=== PATIENT | male | born 1955 | race Caucasian/White ===

== ENCOUNTER 2019-06-06 09:04 | Emergency (ER) | payer OTHER ==
--- OUTSIDE RECORDS SUMMARY | 2019-06-06 09:07 | XMS REPORT ---
:1955 Author Organization [facility] t Address [address] [place] [address] [address] [place] [address] Care Team Providers Name Role Phone MARCELINA Unavailable Unavailable Problems This patient has no known problems. Allergies, Adverse Reactions, Alerts This patient has no known allergies or adverse reactions. Medications This patient has no known medications. Results Test Description Test Time Test Comments Text Results Atomic Results Result Comments TISSUE EXAM 2017-11-30 16:37:00 Surgical Pathology Re port Case: [id number] Authorizing Provider: Jarrod Osborne MD Collected: [id number] Ordering Location: [facility] [facility] PERI[facility]IVE Received: 018 0918 SERVICE S Pathologist: López Jade MD Specimens: A) - Soft Tissu e, Other, RIGHT UO SCAR LESION B) - Soft Tiss ue, Other, BASE OF THE LESION A. URINARY BLADDER, RIGHT URETERAL ORIFICE, BIOPSY: - CYSTITIS CYSTICA ET GLANDULARIS - MUSCULARIS PROPRIA IS PRESEN TB. 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 There is also stromal edema. No dysplasia is seen on any of the sections.[id number] x 2Hematuria, cancer of renal pelvisA. Right UO scar lesion. B. Base of lesi on Specimen is received in two containers o f formalin both labeled with the patient's i nformation.Specimen A: Labeled "right UO scar le ashleigh" consists of multiple fragments of mercado-pi nk soft tissue measuring 2 x 1 x 0.3 cm in aggregate entirely submitted in A1.Specimen B: Labeled "base of the lesion" consists of multiple fragments of mercado-mccall soft tissue measuri ng 1.5 x 1.5 x 0.3 cm in aggregate entirely submit marlene in B1. CG/ew A-B. Performed.
--- OUTSIDE RECORDS SUMMARY | 2019-06-06 09:08 | XMS REPORT | Summary of Care ---
:1955 Author Organization [facility] Address [address] [id number] Care Team Providers Name Role Phone MD Hector Primary Care Provider Reason for Visit Reason Comments Back Pain Consult, Test & Treat (Routine) Status Reason Specialty Diagnoses / Referred By Referred To Procedures Contact Contact Authorization Not Consult, Physical Diagnoses Acute bilateral low back pain with left-sided sciatica Consult, Test, and Treat Consult, Test, and Treat Pako Marsh Kenneth Needed Test, and Medicine and Procedures ME OFFICE OUTPATIENT NEW 45 MINUTES Jamal Allison Jr., MD Treat Rehab [facility]IDE-[facility] [address] [place] [id number] Phone: Fax: Encounter Details Date Type Department Care Team Description 05/07/2019 Office Visit [facility] Renato Min Jr., Back Pain Physical Medicine & MD Rehabilitation [address] Floor, [place] [address] [place] [address] [phone] Allergies No Known Allergiesdocumented as of this encounter (statuses as of 05/07/2019) Medications Medication Sig Dispensed Refills Start Date End Date Status metoprolol (TOPROL-XL) 50 Take 50 mg by 0 10/15/2012 Active MG XL tablet mouth daily. pantoprazole (PROTONIX) 40 Take 40 mg by 0 3 Active MG tablet mouth daily. atorvastatin (LIPITOR) 10 Take 10 mg by 0 10/10/2012 Active MG tablet mouth daily. lisinopril (PRINIVIL, Take 40 mg by 0 Active ZESTRIL) 40 MG tablet mouth daily. FOLIC ACID Take 1 mg by 0 Active mouth daily. Cholecalciferol (VITAMIN Take 1,000 0 Active D) 1000 UNITS CAPS Units by mouth daily. amlodipine (NORVASC) 10 MG Take 10 mg by 0 Active tabletIndications: Hx of mouth daily. bladder cancer tadalafil (CIALIS) 5 MG Take 1 Tab by 30 Tab 11 09/15/2014 Active tablet mouth daily. ZOSTAVAX 19527 UNT/0.65ML 0 08/05/2016 Active SUSR Testosterone (TESTOPEL) 75 Inject into 0 Active MG pellets the muscle. Every 3-months Tamsulosin HCl 0.4 MG TAKE ONE 90 Cap 1 12/05/2018 Active CAPSIndications: Elevated CAPSULE BY prostate specific antigen MOUTH EVERY (PSA), Former smoker, DAY History of renal pelvis cancer, Encounter for follow-up surveillance of bladder cancer acetaminophen-codeine TAKE 1 TABLET 0 04/25/2019 Active (TYLENOL #3) 300-30 MG per BY MOUTH THREE tablet TIMES A DAY NEEDED FOR PAIN gabapentin (NEURONTIN) 600 TAKE 1 TABLET 0 0 Active MG tablet BY MOUTH TWICE A DAY ipratropium (ATROVENT) 0 03/14/2019 Active 0.06 % nasal spray methocarbamol (ROBAXIN) TAKE BY MOUTH 0 04/23/2019 Active 500 MG tablet 1 TABLET 2 TIMES A DAY PRN SPASMS predniSONE (DELTASONE) 20 0 03/14/2019 Active MG tablet methylPREDNISolone (MEDROL Take 1 Tab by 21 Tab 0 0 Active DOSEPACK) 4 MG tablet mouth See Admin Instructions. hydrocodone-acetaminophen Take 1 Tab by 30 Tab 0 05/07/2019 Active (NORCO) 5-325 mg tablet mouth every 6 hours as needed for Pain. documented as of this encounter (statuses as of 05/07/2019) Active Problems Problem Noted Date Elevated prostate specific antigen (PSA) 03/08/2016 Encounter for follow-up surveillance of bladder cancer 10/20/2015 History of renal pelvis cancer 03/02/2015 Former smoker 05/05/2014 Malaise and fatigue 04/22/2014 Neoplasm by body site 12/19/2013 Constipation 03/06/2013 Cancer of renal pelvis (HCCode) 01/02/2013 Hematuria 12/19/2012 documented as of this encounter (statuses as of 05/07/2019) Resolved Problems Problem Noted Date Resolved Date Diarrhea 03/06/2013 04/03/2013 documented as of this encounter (statuses as of 05/07/2019) Immunizations Name Administration Dates Next Due Influenza (whole) 11/20/2013 Influenza Quad-PF 01/03/2019 Influenza whole 01/09/2013 documented as of this encounter Social History Tobacco Use Types Packs/Day Years Used Date Former Smoker Cigarettes 1 30 Quit: 01/10/20 03 Smokeless Tobacco: Never Used Alcohol Use Drinks/Week oz/Week Comments Yes 40 Standard drinks or equivalent 40.0 Sex Assigned at Date Recorded Not on file Job Start Date Occupation Industry Not on file Not on file Not on file Travel History Travel Start Travel End No recent travel history available. documented as of this encounter Last Filed Vital Signs Vital Sign Reading Time Taken Comments Blood Pressure 134/87 05/07/2019 1:24 PM CDT Pulse 74 05/07/2019 1:24 PM CDT Temperature 36.6 C (97.8 F) 05/07/2019 1:24 PM CDT Respiratory Rate - - Oxygen Saturation - - Inhaled Oxygen Concentration - - Weight 94.3 kg (208 lb) 05/07/2019 1:24 PM CDT Height 182.9 cm (6') 05/07/2019 1:24 PM CDT Body Mass Index 28.21 05/07/2019 1:24 PM CDT documented in this encounter Patient Instructions Patient InstructionsRenato Min Jr., MD - 05/07/2019 2:15 PM CDT-Use of opiate medications for therapeutic purposes 1) Continue current medications. 2) Take medications as prescribed. 3) Do not share or sell your medications. Do not take medications not prescribed to you. 4) Call if you have any intolerable medication side effects. 5) Try and get daily exercise including walking. 6) Call if symptoms worsen. 7) If you feel out of control with the use of your medication or if you experience a change in behavior, you may be showing signs of addiction. Please contact our office if you have any worries or believe that you need help with addiction or substance abuse. 8) Lost or stolen prescriptions and/or medications will not be refilled early. 9) Cognitive Side effects of opiate medications include: Fatigue Dizziness Clouded mentation Decreased ability to concentrate Slowed motor performance Slowed reflexes Increased response time to stimuli Impaired coordination Use caution regarding these side effects and if any are present do not drive or operate heavy machinery. 10) The danger of mixing opiate medications with other sedating drugs like soma, benzodiazepines, sleep medications, alcohol and other opiates can lead to oversedation and accidental overdose. Do not mix medications. 11) Do not use any illegal substances. Constipation- Constipation is a common side effect of opiate medications. Opiates slow bowel motility. IF Constipation occurs, push fluids, use senna or senna with colace daily as directed. Maintain a high fiber diet with plenty of roughage, and 6-8 large glasses of water daily to avoid constipation inthe future. 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 Call if symptoms do not improve, please call our office documented in this encounter Progress Notes Renato Min Jr., MD - 05/07/2019 2:15 PM CDT Chief Complaint Patient presents with Back Pain Eagle Nolasco is a 63 y.o. male is here today for evaluation of low back pain. Symptoms have been present for many years ago Initial inciting event:lifting heavy object many years ago and 3 weeks ago after playing golf Pain Location:across the lower back left >right lately Pain severity: pain is perceived as moderate (4-6 pain scale) Exacerbating factors: Bending with am stiffness Associated symptoms/Red flags: no other symptoms: The patient denies F/C or unexplained weightloss.They have no bowel or bladder complaints. Previous workup: MRI (images reviewed) 05-06-2019 no report. 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 atorvastatin Take 10 mg by mouth daily. Vitamin D Take 1,000 Units by mouth daily. FOLIC ACID Take 1 mg by mouth daily. gabapentin TAKE 1 TABLET BY MOUTH TWICE A DAY ipratropium lisinopril Take 40 mg by mouth daily. methocarbamol TAKE BY MOUTH 1 TABLET 2 TIMES A DAY PRN SPASMS metoprolol Take 50 mg by mouth daily. pantoprazole Take 40 mg by mouth daily. predniSONE tadalafil Take 1 Tab by mouth daily. 30 Tab 11 Tamsulosin HCl TAKE ONE CAPSULE BY MOUTH EVERY DAY 90 Cap 1 Testosterone Inject into the muscle. Every 3-months Zostavax No facility-administered medications prior to visit. Social History Tobacco Use Smoking status: Former Smoker Packs/day: 1.00 Years: 30.00 Pack years: 30.00 Types: Cigarettes Last attempt to quit: 01/09/2003 Years since quittin.3 Smokeless tobacco: Never Used Substance Use Topics Alcohol use: Yes Alcohol/week: 40.0 standard drinks Types: 40 drink(s) per week Drug use: No Past Medical, Family, Social and Medication history was reviewed. The patient's pain diagram and questionnaire were reviewed. Review of Systems Constitutional: Negative for chills, fever and malaise/fatigue. Respiratory: Negative for shortness of breath. Cardiovascular: Negative for chest pain. Gastrointestinal: Negative for constipation. Genitourinary: Negative for urgency. Musculoskeletal: Positive for back pain and myalgias. Neurological: Negative for sensory change, focal weakness and weakness. Psychiatric/Behavioral: Negative for depression. The patient is not nervous/anxious and does not have insomnia. Physical Exam Blood pressure 134/87, pulse 74, temperature 97.8 F (36.6 C), temperature source Oral, height 6'(1.829 m), weight 208 lb (94.3 kg). General appearance: alert, well appearing, and in no distress. HEENT: normocephalic, atraumatic. Chest: no tachypnea, retractions or cyanosis. CVS exam: intact peripheral pulses lower extremities. Lower extremity edema: absent Abdominal exam: soft, nondistended. Skin exam - no rashes Neurological exam reveals alert, oriented, normal speech, no focal findings or movement disorder noted, DTR's normal and symmetric, motor and sensory grossly normal bilaterally. Lumbar spine exam: Gait: antalgic Tenderness: central, left paralumbar ROM:limited extension JUSTICE: Negative bilateral SLR: Negative bilateral Femoral neural tension testing: Negative bilateral After reviewing pertinent patient history and PE findings and correlating with available imaging studies and past treatments my assessment and plan is as follows: 1. Lumbar disc herniation with radiculopathy The pathophysiology of the current diagnosis was discussed with the patient. Other possible causes were reviewed. Multiple treatment options were discussed. All of the patient's questions were answered. Medrol trial and if not improving consider PT vs EDER MRI images of the spine were reviewed with the patient. 2. Muscle pain, myofascial The pathophysiology of myofascial pain was discussed with the patient. 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 Therisks and benefits of trigger point, intra-articular steroid injections and spinal injections were di scussed. Verbal instructions on spinal biomechanics and lifting techniques were given. Benefits ofregular exercise and activity were also reviewed with him. -Use of opiate medications for therapeutic purposes 1) [place] 5mg prn (30). 2) Take medications as prescribed. 3) Do not share or sell your medications. Do not take medications not prescribed to you. 4) Call if you have any intolerable medication side effects. 5) Try and get daily exercise including walking. 6) Call if symptoms worsen. 7) If you feel out of control with the use of your medication or if you experience a change in behavior, you may be showing signs of addiction. Please contact our office if you have any worries or believe that you need help with addiction or substance abuse. 8) Lost or stolen prescriptions and/or medications will not be refilled early. 9) Cognitive Side effects of opiate medications include: Fatigue Dizziness Clouded mentation Decreased ability to concentrate Slowed motor performance Slowed reflexes Increased response time to stimuli Impaired coordination Use caution regarding these side effects and if any are present do not drive or operate heavy machinery. 10) The danger of mixing opiate medications with other sedating drugs like soma, benzodiazepines, sleep medications, alcohol and other opiates can lead to oversedation and accidental overdose. Do not mix medications. 11) Do not use any illegal substances. Constipation- Constipation is a common side effect of opiate medications. Opiates slow bowel motility. IF Constipation occurs, push fluids, use senna or senna with colace daily as directed. Maintain a high fiber diet with plenty of roughage, and 6-8 large glasses of water daily to avoid constipation inthe future. Timing elimination to occur after meals, or after a hot drink, can also improve the situation retirement. Call if symptoms do not improve, please call our office Renato Min Jr., MD documented in this encounter Plan of Treatment Date Type Specialty Care Team Description 05/09/2019 Procedure visit Urology Francisco Garnett PA [address] [place], [place] [address] 06/12/2019 Office Visit [facility] Jarrod Osborne MD [address] [facility] [address] [place], [place] [address] [phone] Health Maintenance Due Date Last Done Comments COLON CANCER SCREENIN1955 COLONOSCOPY TETANUS SHOT (ADULT) 1968 BMI FOLLOW UP PLAN 12/27/1971 HEPATITIS C SCREENING 12/27/1971 MEDICARE AWV (Initial) 08/21/2015 AAA Screen 2018 PNEUMOVAX >=65 (PPSV23) 2018 PREVNAR >= 65 (PCV13) 2018 FALL SCREEN 05/06/2020 05/07/2019 FLU VACCINE > 6 MONTHS Completed 01/03/2019, 11/08/2017 (Declined), 12/14/2016 (Declined), Additional history exists documented as of this encounter Results Not on filedocumented in this encounter Visit Diagnoses Diagnosis Lumbar disc herniation with radiculopath y - Primary Displacement of lumbar intervertebral di sc without myelopathy Muscle pain, myofascial Mylagia and myositis, unspecified documented in this encounter Insurance Payer Benefit Plan / Subscriber ID Effective Dates Phone Addre ss Type Group MEDICARE MEDICARE PART A xxxxxxxxxxx 2015-Present [address] Medicare [place] [address] [employer] INDEMNITY/TRADIT xxxxxx 2015-Presen [address] Indemnity [employer]ON[employer] CHOICE - [place] [employer] [id number] documented as of this encounter
--- NOTE | 2019-06-06 09:46 | EDPHYS ---
Physician Documentation [facility] Name: Eagle Nolasco Age: 63 yrs Sex: Male : 1955 Arrival Date: 06/06/2019 Time: 09:10 Bed 15 Private MD: Dodie Davis H ED Physician Param Guzman HPI: 06/05 09:36 This 63 yrs old Male presents to ER via Ambulatory with complaints of Wrist ps1 Pain. 09:36 Patient states that he has been lifting stuff in garage over last three days and now ps1 has right wrist pain localizing over anatomic snuff box. No trauma. Pain rated as moderate and severe with moment of thumb. No fever. Mild swelling. . Historical: - Allergies: 09:30 No Known Allergies; ss - Home Meds: 09:30 amlodipine 10 mg tab 1 tab once daily [Active]; atorvastatin 10 mg Oral tab 1 tab once ss daily [Active]; lisinopril 40 mg Oral tab 1 tab once daily [Active]; pantoprazole 40 mg Oral TbEC 1 tab once daily [Active]; metoprolol tartrate 100 mg Oral tab [Active]; - PMHx: 09:30 Hyperlipidemia; Hypertension; GERD; ss - PSHx: 09:30 Right kidney removal; ss - Immunization history:: Adult Immunizations up to date, Adult Immunizations unknown. - Social history:: Smoking status: Patient denies any tobacco usage or history of. Smoking status: . ROS: 09:36 Constitutional: Negative for fever, chills, and weight loss, Eyes: Negative for injury, ps1 pain, redness, and discharge, ENT: Negative for injury, pain, and discharge, Cardiovascular: Negative for chest pain, palpitations, and edema, Respiratory: Negative for shortness of breath, cough, wheezing, and pleuritic chest pain, Abdomen/GI: Negative for abdominal pain, nausea, vomiting, diarrhea, and constipation. 09:36 MS/extremity: Positive for tenderness, of the right wrist. Exam: 09:36 Constitutional: This is a well developed, well nourished patient who is awake, alert, ps1 and in no acute distress. Head/Face: Normocephalic, atraumatic. Eyes: Pupils equal round and reactive to light, extra-ocular motions intact. Lids and lashes normal. Conjunctiva and sclera are non-icteric and not injected. 09:36 Chest/axilla: Inspection: normal. 09:36 Cardiovascular: Rate: normal, Rhythm: regular. 09:36 Respiratory: Respirations: normal. 09:36 Abdomen/GI: Inspection: abdomen appears normal. 09:36 Musculoskeletal/extremity: Extremities: grossly normal except: noted in the right wrist: pain, tenderness, in anatomic snuff box cw dequervains tenosynovitis. . 09:36 Skin: Appearance: normal except for affected area. Vital Signs: 09:20 BP 148 / 89; Pulse 82; Resp 16; Temp 98.5(O); Pulse Ox 98% on R/A; dh3 MDM: 09:36 Data reviewed: vital signs, nurses notes, radiologic studies, and as a result, I will ps1 discharge patient. ED course: Splint with thumb spica and refer to ortho. Joan Short term NSAIDS and steroids . 09:45 Patient medically screened. ps1 06/05 09:14 Order name: Wrist Right 2 View XRAY ps1 Administered Medications: No medications were administered Disposition: 06/06/19 09:45 Discharged to Home. Impression: Other synovitis and tenosynovitis. - Condition is Stable. - Discharge Instructions: De Quervain Tenosynovitis. - Prescriptions for Anaprox DS 550 mg Oral Tablet - take 1 tablet by ORAL route every 12 hours As needed; 20 tablet. Medrol (Fuad) 4 mg Oral Tablets, Dose Pack - take 1 tablet by ORAL route as directed - follow package instructions; 1 packet. - Medication Reconciliation Form, Thank You Letter, Antibiotic Education, Prescription Opioid Use form. - Follow up: Se Reza MD; When: Upon discharge from the Emergency Department; Reason: Further diagnostic work-up, Recheck today's complaints, Continuance of care, Re-evaluation by your physician. Follow up: Emergency Department; When: As needed; Reason: Fever > 102 F, Trouble breathing, Worsening of condition. - Problem is new. - Symptoms are unchanged. Signatures: Dispatcher [employer] EDMS Teresa Soto RN RN ss Hall, Patricia, RN RN ph Singer, Phillip, MD MD ps1 Corrections: (The following items were deleted from the chart) 10:06 09:45 06/06/2019 09:45 Discharged to Home. Impression: Other synovitis and ph tenosynovitis. Condition is Stable. Forms are Medication Reconciliation Form, Thank You Letter, Antibiotic Education, Prescription Opioid Use. Follow up: Se Reza; When: Upon discharge from the Emergency Department; Reason: Further diagnostic work-up, Recheck today's complaints, Continuance of care, Re-evaluation by your physician. Follow up: Emergency Department; When: As needed; Reason: Fever > 102 F, Trouble breathing, Worsening of condition. Problem is new. Symptoms are unchanged. ps1
--- NOTE | 2019-06-06 09:46 | ER ---
Nurse's Notes [facility] Name: Eagle Nolasco Age: 63 yrs Sex: Male : 1955 Arrival Date: 06/06/2019 Time: 09:10 Bed 15 Private MD: Dodie Davis H Diagnosis: Other synovitis and tenosynovitis Presentation: 06/05 09:20 Chief complaint: Patient states: R wrist pain and swelling x 2 days. No known injury. ss 09:21 Coronavirus screen: Patient denies a cough. Patient denies shortness of breath or ph difficulty breathing. Patient denies measured and/or subjective temperature greater than 100.4F prior to today's visit. Patient denies travel on a cruise ship or to a country the [facility] currently lists as an affected area. Patient denies contact with known and/or suspected case of COVID-19. Ebola Screen: No symptoms or risks identified at this time. Initial Sepsis Screen: Does the patient meet any 2 criteria? No. Patient's initial sepsis screen is negative. Does the patient have a suspected source of infection? No. Patient's initial sepsis screen is negative. Risk Assessment: Do you want to hurt yourself or someone else? Patient reports no desire to harm self or others. Onset of symptoms was June 06, 2019. 09:21 Acuity: EDER 4 ph 09:21 Method Of Arrival: Ambulatory ph Historical: - Allergies: 09:30 No Known Allergies; ss - Home Meds: 09:30 amlodipine 10 mg tab 1 tab once daily [Active]; atorvastatin 10 mg Oral tab 1 tab once ss daily [Active]; lisinopril 40 mg Oral tab 1 tab once daily [Active]; pantoprazole 40 mg Oral TbEC 1 tab once daily [Active]; metoprolol tartrate 100 mg Oral tab [Active]; - PMHx: 09:30 Hyperlipidemia; Hypertension; GERD; ss - PSHx: 09:30 Right kidney removal; ss - Immunization history:: Adult Immunizations up to date, Adult Immunizations unknown. - Social history:: Smoking status: Patient denies any tobacco usage or history of. Smoking status: . Screenin:21 Abuse screen: Denies threats or abuse. Denies injuries from another. Nutritional ph screening: No deficits noted. Tuberculosis screening: No symptoms or risk factors identified. Fall Risk None identified. Assessment: 10:01 General: Appears in no apparent distress. comfortable, well groomed, Behavior is calm, ph cooperative, appropriate for age, Denies fever, feeling ill. Pain: Complains of pain in lateral aspect of right hand and dorsal aspect of proximal phalanx of right thumb. Neuro: Level of Consciousness is awake, alert, obeys commands, Oriented to person, place, time, situation. Cardiovascular: Capillary refill < 3 seconds in bilateral fingers Patient's skin is warm and dry. Respiratory: Airway is patent Respiratory effort is even, unlabored, Respiratory pattern is regular, symmetrical. Derm: Skin is intact, is healthy with good turgor, Skin is pink, warm \T\ dry. Musculoskeletal: Circulation, motion, and sensation intact. Range of motion: intact in all extremities. Vital Signs: 09:20 BP 148 / 89; Pulse 82; Resp 16; Temp 98.5(O); Pulse Ox 98% on R/A; dh3 ED Course: 09:10 Patient arrived in ED. dp 09:10 Anna Young MD is Private Physician. dp 09:10 Dodie Davis DO is Private Physician. dp 09:10 Param Guzman MD is Attending Physician. ps1 09:21 Elicia Harris, DULCE is Primary Nurse. ph 09:22 Triage completed. ph 09:22 Arm band placed on Patient placed in an exam room. ph 09:22 Patient has correct armband on for positive identification. Bed in low position. Call ph light in reach. Side rails up X 1. Door closed. Noise minimized. Warm blanket given. 09:43 Se Reza MD is Referral Physician. ps1 09:49 Wrist Right 2 View XRAY In Process Unspecified. EDMS 10:05 No provider procedures requiring assistance completed. Patient did not have IV access ph during this emergency room visit. 10:06 Velcro wrist splint applied to right wrist. ph Administered Medications: No medications were administered Outcome: 09:45 Discharge ordered by . ps1 10:05 Discharged to home ambulatory. ph 10:05 Condition: good 10:05 Discharge instructions given to patient, Instructed on discharge instructions, follow up and referral plans. medication usage, Demonstrated understanding of instructions, follow-up care, medications, Prescriptions given X 2. 10:06 Patient left the ED. ph Signatures: Dispatcher [employer] EDTeresa Hansen RN RN Elicia Harris RN RN Waq[facility], [facility] Param Guzman MD MD ps1 Pena, Darian dp
[2019-06-06 10:11] VITALS: BP 148/89; TEMP 98.5; O2SAT 98
--- NOTE | 2019-06-06 11:20 | RAD REPORT ---
EXAM DESCRIPTION: RAD - Wrist Right 2 View - 06/06/2019 9:48 am CLINICAL HISTORY: PAIN Pain COMPARISON: No comparisons FINDINGS: No fracture or dislocation seen. Mild soft tissue swelling is seen along the dorsum of th e wrist.
== END 2019-06-06 10:06 | disposition home or self-care (01) ==
LOC: ER 09:04
DX: M65.80 Other synovitis and tenosynovitis, unspecified site (principal); I10 Essential (primary) hypertension; E78.5 Hyperlipidemia, unspecified; K21.9 Gastro-esophageal reflux disease without esophagitis
CPT/HCPCS: 99283

== ENCOUNTER 2019-07-17 04:40 | Emergency (ER) | payer OTHER ==
[2019-07-17] MEDS ORDERED: HYDROCODONE/APAP 10/325 TAB ONE (05:26)
[2019-07-17] MEDS ORDERED: DIAZEPAM 10 MG/2 ML INJ SYRINGE ONE (05:27)
--- OUTSIDE RECORDS SUMMARY | 2019-07-17 07:06 | XMS REPORT | Clinical Summary ---
:1955 Author Organization [facility] Address [address] [place] [address] Care Team Providers Name Role Phone Rebecca Young Primary Care Provider Unavailable Allergies Active Allergy Reactions Severity Noted Date Comments Vancomycin Analogues Itching 01/02/2014 Red Man Syndrome Medications Medication Sig Dispensed Refills Start Date End Date Status pantoprazole Take 40 mg by 0 Act emmy (PROTONIX) 40 MG mouth daily. tablet ATORVASTATIN CALCIUM Take 10 mg by 0 Active (LIPITOR ORAL) mouth. AMLODIPINE BESYLATE Take 10 mg by 0 Active (NORVASC ORAL) mouth daily. LISINOPRIL ORAL Take 40 mg by 0 Active mouth daily. CHOLECALCIFEROL, Take by mouth 0 Active VITAMIN D3, (VITAMIN daily. D3 ORAL) FOLIC ACID ORAL Take 1 mg by 0 A ctive mouth daily. aspirin 81 mg Tab Take by mouth 0 Active daily. tamsulosin (FLOMAX) Take 1 capsule 30 capsule 0 11/28/2017 Active 0.4 mg Cap 24 hr (0.4 mg total) by capsule mouth daily. 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 Last Filed Vital Signs Not on file Plan of Treatment Not on file Implants Implanted Type Area Self Pay Collector Device Shelf Model / Identifier Expiration Serial / Date Lot Stent,Uret Polaris Loop Dual Durometer Percuflex 6fr 28cm - [id number] Uro Stent Right: [place] 06/20/2015 155-234 / Implanted: Qty: 1 on 12/25/2012 by Stan Gee MD [facility] / [id number] Results Not on fileafter 07/16/2018 Insurance Payer Benefit Plan / Group Subscriber ID Type Phone A ddress MEDICARE MEDICARE A B xxxxxxxxxxx Medicare AETNA - [place] CARE AETNA INDEMNITY NON CONTR xxxxxxxxx Comm AETNA - [place]GD CARE AETNA HMO POS QPOS xxxxxxxxx HMO/POS Advance Directives For more information, please contact:[address] [phone] Code Status Date Activated Date Inactivated Comments Code ONE 06/24/2013 7:15 PM 06/27/2013 4:13 PM All possible means of support, including: cardi ac massage, mechanical venti lation, and defibrillation w ill be used to support life. Code ONE 12/25/2012 6:14 PM 2012 3:01 PM All possib le means of support, including: cardi ac massage, mechanical ventilation, and defibrillation will be used to suppo rt life.
--- OUTSIDE RECORDS SUMMARY | 2019-07-17 07:06 | XMS REPORT ---
:1955 Author Organization [facility] t Address [address] [place] [address] Care Team Providers Name Role Phone Jamal Min MD Attending Clinician Salma MECHANICAL DEVELOPMENT ENGINEER-CCarley Attending Clinician MARCELINA Attending Clinician Unavailable MARCELINA Admitting Clinician Unavailable Problems This patient has no known problems. Allergies, Adverse Reactions, Alerts This patient has no known allergies or adverse reactions. Medications This patient has no known medications. Procedures This patient has no known procedures. Encounters Start End Encounter Admission Attending Care Care Encounter Source Date/Time Date/Time Type Type Clinicians Facility Department ID 2019-05-07 2019-05-07 Office [facility] Min [id number] 13:20:03 13:50:03 Visit Renato Berry AMBULATOR [id number] Y [id number] 2019-04-30 2019-04-30 Office [facility] Marsh [id number] 09:28:36 09:58:19 Visit Nancy Howe AMBULATOR [id number] Y [id number] Results Test Description Test Time Test Comments Results Result Comments Source TISSUE EXAM 2017-11-30 Surgical Pathology 16:37:00 Report Case: [id number] Authorizing Provider: Jarrod Osborne MD Collected: 11/28/2017 1600 Ordering Location: [facility] Received: 11/29/2017 0823 SERVICES Pathologist: López Cherry MD Specimens: A) - Soft Tissue, Other, RIGHT UO SCAR LESION B) - Soft Tissue, Other, BASE OF THE LESION A. URINARY BLADDER, RIGHT URETERAL ORIFICE, BIOPSY: - CYSTITIS CYSTICA ET GLANDULARIS - MUSCULARIS PROPRIA IS PRESENTB. 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 There is also stromal edema. No dysplasia is seen on any of the sections.[id number] x 2Hematuria, cancer of renal pelvisA. Right UO scar lesion. B. Base of lesion Specimen is received in two containers of formalin both labeled with the patient's information.Specimen A: Labeled "right UO scar lesion" consists of multiple fragments of mercado-pink soft tissue measuring 2 x 1 x 0.3 cm in aggregate entirely submitted in A1.Specimen B: Labeled "base of the lesion" consists of multiple fragments of mercado-mccall soft tissue measuring 1.5 x 1.5 x 0.3 cm in aggregate entirely submitted in B1. CG/ew A-B. Performed.
[2019-07-17 13:52] VITALS: BP 174/98; TEMP 98.3; O2SAT 98
--- NOTE | 2019-07-22 14:16 | ER ---
Nurse's Notes [facility] Name: Eagle Nolasco Age: 63 yrs Sex: Male : 1955 Arrival Date: 07/17/2019 Time: 04:43 Bed 7 Private MD: Diagnosis: Low back pain Presentation: 07/16 04:53 Chief complaint: Patient states: Reports he has had lower back pain for the past four ea months, was seeing Dr. Banegas display specialist at [facility]. Pt reports he has been out of Hydrocodone for the past 5 days and has been unable to get it filled. Coronavirus screen: Proceed with normal triage. Ebola Screen: No symptoms or risks identified at this time. Initial Sepsis Screen: Does the patient meet any 2 criteria? No. Patient's initial sepsis screen is negative. Does the patient have a suspected source of infection? No. Patient's initial sepsis screen is negative. Risk Assessment: Do you want to hurt yourself or someone else? Patient reports no desire to harm self or others. Onset of symptoms was July 17, 2019. 04:53 Method Of Arrival: Ambulatory ea 04:53 Acuity: EDER 4 ea Historical: - Allergies: 05:00 No Known Allergies; ea - Home Meds: 05:00 aspirin 81 mg Oral chew [Active]; Vitamin D Oral [Active]; folic acid 800 mcg Oral tab ea 1 tab once daily [Active]; amlodipine 10 mg tab 1 tab once daily [Active]; atorvastatin 10 mg oral tab 1 tab once daily [Active]; lisinopril 40 mg Oral tab 1 tab once daily [Active]; metoprolol tartrate 100 mg Oral tab 1 tab once daily [Active]; tamsulosin 0.4 mg oral cp24 1 cap once daily [Active]; tadalafil oral oral [Active]; - PMHx: 05:00 chronic back pain; ea - PSHx: 05:00 Right kidney removal; ea - Immunization history:: Adult Immunizations up to date. - Social history:: Patient/guardian denies using alcohol, street drugs, The patient lives with family, Smoking status: unknown. - Family history:: not pertinent. Screenin:55 Abuse screen: Denies threats or abuse. Nutritional screening: No deficits noted. ea Tuberculosis screening: No symptoms or risk factors identified. Fall Risk None identified. Assessment: 05:00 General: Appears uncomfortable, Behavior is appropriate for age. Pain: Complains of ea pain in back. Neuro: Level of Consciousness is awake, alert, obeys commands, Oriented to person, place, time. Respiratory: Airway is patent Respiratory effort is even, unlabored, Respiratory pattern is regular, symmetrical. Derm: Skin is pink, warm \T\ dry. Musculoskeletal: Parent/caregiver report the patient having pain in back. Vital Signs: 04:53 BP 174 / 98; Pulse 98; Resp 18; Temp 98.3; Pulse Ox 98% on R/A; Weight 95.25 kg; Height ea 6 ft. (182.88 cm); 04:53 Body Mass Index 28.48 (95.25 kg, 182.88 cm) ea ED Course: 04:43 Patient arrived in ED. 04:52 Pricila Romero, RN is Primary Nurse. ea 04:55 Triage completed. ea 04:56 Arm band placed on right wrist. Patient placed in an exam room, on a stretcher, on ea pulse oximetry. 04:56 Patient has correct armband on for positive identification. Bed in low position. Call ea light in reach. Side rails up X2. 05:14 Roseline Church MD is Attending Physician. ma2 05:28 No provider procedures requiring assistance completed. Patient did not have IV access rv during this emergency room visit. Administered Medications: 05:28 Drug: Valium 5 mg Route: IM; Site: right deltoid; rv 05:44 Follow up: Response: No adverse reaction ea 05:28 Drug: Valium 5 mg Route: IM; Site: right deltoid; rv 05:44 Follow up: Response: No adverse reaction ea 05:28 Drug: Cotuit 10 mg-325 mg 1 tabs {Note: RASS 0.} Route: PO; rv 05:44 Follow up: Response: No adverse reaction; RASS: Alert and Calm (0) ea Outcome: 05:18 Discharge ordered by . ma2 05:29 Discharge instructions given to patient, Instructed on discharge instructions, follow rv up and referral plans. medication usage, Demonstrated understanding of instructions, follow-up care, medications, Prescriptions given X 2. 05:44 Patient left the ED. ea Signatures: René Alaniz RN RN Pricila Romero RN Roseline Reese ea, MD MD ma2 Archie Watkins, DULCE RN rv
--- NOTE | 2019-07-22 14:16 | EDPHYS ---
Physician Documentation [facility] Name: Eagle Nolasco Age: 63 yrs Sex: Male : 1955 Arrival Date: 07/17/2019 Time: 04:43 Bed 7 Private MD: ED Physician Roseline Church HPI: 07/16 05:15 This 63 yrs old Male presents to ER via Ambulatory with complaints of Low Back Pain. ma2 05:15 The patient presents with pain that is chronic. The symptoms are located in the low ma2 back. Onset: The symptoms/episode began/occurred gradually, 3 week(s) ago. Associated signs and symptoms: Pertinent negatives: constipation, headache, hematuria, nausea, numbness, vomiting, weakness. Severity of symptoms: At their worst the symptoms were moderate, in the emergency department the symptoms are unchanged. The patient has experienced similar episodes in the past. chronic back p[ain he is out of his norco. no red flags no weakness fever urine retention or incontinence . no saddle anasthesia . Historical: - Allergies: 05:00 No Known Allergies; ea - Home Meds: 05:00 aspirin 81 mg Oral chew [Active]; Vitamin D Oral [Active]; folic acid 800 mcg Oral tab ea 1 tab once daily [Active]; amlodipine 10 mg tab 1 tab once daily [Active]; atorvastatin 10 mg oral tab 1 tab once daily [Active]; lisinopril 40 mg Oral tab 1 tab once daily [Active]; metoprolol tartrate 100 mg Oral tab 1 tab once daily [Active]; tamsulosin 0.4 mg oral cp24 1 cap once daily [Active]; tadalafil oral oral [Active]; - PMHx: 05:00 chronic back pain; ea - PSHx: 05:00 Right kidney removal; ea - Immunization history:: Adult Immunizations up to date. - Social history:: Patient/guardian denies using alcohol, street drugs, The patient lives with family, Smoking status: unknown. - Family history:: not pertinent. ROS: 05:15 Constitutional: Negative for fever, chills, and weight loss. ma2 05:15 All other systems are negative. Exam: 05:15 Constitutional: This is a well developed, well nourished patient who is awake, alert, ma2 and in no acute distress. Chest/axilla: Normal chest wall appearance and motion. Nontender with no deformity. No lesions are appreciated. Cardiovascular: Regular rate and rhythm with a normal S1 and S2. No gallops, murmurs, or rubs. Normal PMI, no JVD. No pulse deficits. Respiratory: Lungs have equal breath sounds bilaterally, clear to auscultation and percussion. No rales, rhonchi or wheezes noted. No increased work of breathing, no retractions or nasal flaring. Abdomen/GI: Soft, non-tender, with normal bowel sounds. No distension or tympany. No guarding or rebound. No evidence of tenderness throughout. Back: No spinal tenderness. No costovertebral tenderness. Full range of motion. Skin: Warm, dry with normal turgor. Normal color with no rashes, no lesions, and no evidence of cellulitis. MS/ Extremity: Pulses equal, no cyanosis. Neurovascular intact. Full, normal range of motion. Neuro: Awake and alert, GCS 15, oriented to person, place, time, and situation. Cranial nerves II-XII grossly intact. Motor strength 5/5 in all extremities. Sensory grossly intact. Cerebellar exam normal. Normal gait. Vital Signs: 04:53 BP 174 / 98; Pulse 98; Resp 18; Temp 98.3; Pulse Ox 98% on R/A; Weight 95.25 kg; Height ea 6 ft. (182.88 cm); 04:53 Body Mass Index 28.48 (95.25 kg, 182.88 cm) ea MDM: 05:14 Patient medically screened. [facility] 05:15 Differential diagnosis: strain, sciatica, contusion, Herniated disc. Data reviewed: nc2 vital signs, nurses notes. Counseling: I had a detailed discussion with the patient and/or guardian regarding: the historical points, exam findings, and any diagnostic results supporting the discharge/admit diagnosis, the presence of at least one elevated blood pressure reading (>120/80) during this emergency department visit, the need for outpatient follow up. Response to treatment: the patient's symptoms have markedly improved after treatment. Administered Medications: 05:28 Drug: Valium 5 mg Route: IM; Site: right deltoid; rv 05:44 Follow up: Response: No adverse reaction ea 05:28 Drug: Valium 5 mg Route: IM; Site: right deltoid; rv 05:44 Follow up: Response: No adverse reaction ea 05:28 Drug: Dyer 10 mg-325 mg 1 tabs {Note: RASS 0.} Route: PO; rv 05:44 Follow up: Response: No adverse reaction; RASS: Alert and Calm (0) ea Disposition: 07/17/19 05:18 Discharged to Home. Impression: Low back pain. - Condition is Stable. - Discharge Instructions: Back Pain, Adult. - Prescriptions for Valium 10 mg Oral Tablet - take 1 tablet by ORAL route every 8 hours As needed; 20 tablet. Tramadol 50 mg Oral Tablet - take 1 tablet by ORAL route every 8 hours as needed; 12 tablet. - Medication Reconciliation Form, Thank You Letter, Antibiotic Education, Prescription Opioid Use form. - Follow up: Private Physician; When: Tomorrow; Reason: Continuance of care. Signatures: Pricila Romero RN RN Roseline Spears MD MD ma2 Archie Watkins RN RN rv Corrections: (The following items were deleted from the chart) 05:44 05:18 07/17/2019 05:18 Discharged to Home. Impression: Low back pain. Condition is ea Stable. Prescriptions for Valium 10 mg Oral Tablet - take 1 tablet by ORAL route every 8 hours As needed; 20 tablet, Tramadol 50 mg Oral Tablet - take 1 tablet by ORAL route every 8 hours as needed; 12 tablet. and Forms are Medication Reconciliation Form, Thank You Letter, Antibiotic Education, Prescription Opioid Use. Follow up: Private Physician; When: Tomorrow; Reason: Continuance of care. avinash
== END 2019-07-17 05:44 | disposition home or self-care (01) ==
LOC: ER 04:40
DX: M54.5 Low back pain (principal); Z79.82 Long term (current) use of aspirin
CPT/HCPCS: 96372; 99283; J3360

== ENCOUNTER 2019-07-21 04:45 | Emergency (ER) | payer OTHER ==
--- OUTSIDE RECORDS SUMMARY | 2019-07-21 04:47 | XMS REPORT | Clinical Summary ---
:1955 Author Organization [facility] Address [address] [place] [address] Care Team Providers Name Role Phone Rebecca [...] Not on file Implants Implanted Type Area Numerical Control Programmer Device Shelf Model / Identifier Expiration Serial / Date Lot Stent,Uret Polaris Loop Dual Durometer Percuflex 6fr 28cm - [id number] Uro Stent Right: [place] 06/20/2015 155-234 / Implanted: Qty: 1 on 12/25/2012 by Stan Gee MD [facility] / [id number] Results Not on fileafter 07/20/2018 Insurance Payer Benefit Plan / Group Subscriber ID Type Phone A ddress MEDICARE MEDICARE A B xxxxxxxxxxx Medicare AETNA - [place] CARE AETNA INDEMNITY NON CONTR xxxxxxxxx Comm AETNA - [place]GD CARE AETNA HMO POS QPOS xxxxxxxxx HMO/POS Advance Directives For more information, please contact:[address] [phone] Code Status Date Activated Date Inactivated Comments [...]
--- OUTSIDE RECORDS SUMMARY | 2019-07-21 04:48 | XMS REPORT ---
:1955 Author Organization [facility] t Address [address] [place] [address] Care Team Providers Name Role Phone Jamal Min MD Attending Clinician Salma NOTCHER-CCarley Attending Clinician MARCELINA Attending Clinician Unavailable MARCELINA [...] ID 2019-05-07 2019-05-07 Office SANTOS Min [id number] 13:20:03 13:50:03 Visit Renato Berry AMBULATOR [id number] Y [id number] 2019-04-30 2019-04-30 Office SANTOS Marsh [id number] 09:28:36 09:58:19 Visit Nancy Howe AMBULATOR [id number] Y [id number] Results Test Description Test Time Test Comments Results Result Comments Source TISSUE EXAM 2017-11-30 Surgical Pathology 16:37:00 Report Case: [id number] Authorizing Provider: Jarrod Osborne MD Collected: 11/28/2017 1600 Ordering Location: [facility] Received: 11/29/2017 0823 SERVICES Pathologist: López [...] IS PRESENT Signing Pathologist Direct Phone Line: [phone] ically signed by López Cherry MD on 11/30/2017 at 4:37 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 There is also stromal edema. No dysplasia is seen on any of the sections.[id number] x 2Hematuria, cancer of renal pelvisA. Right [...]
[2019-07-21] MEDS ORDERED: ONDANSETRON 4 MG (ODT) TAB ONE (06:42)
[2019-07-21] MEDS ORDERED: MORPHINE 4 MG/ML SYR ONE (06:42)
[2019-07-21] MEDS ORDERED: LIDOCAINE 4% PATCH ONE (06:42)
[2019-07-21 07:12] VITALS: TEMP 97.9
[2019-07-21 07:14] VITALS: BP 132/68; O2SAT 98
--- NOTE | 2019-07-22 18:40 | ER ---
Nurse's Notes [facility] Name: Eagle Nolasco Age: 63 yrs Sex: Male : 1955 Arrival Date: 07/21/2019 Time: 04:48 Bed 13 Private MD: Diagnosis: Lumbago with sciatica, right side Presentation: 07/20 04:51 Chief complaint: Patient states: Was seen here on the 16 of July, reports still having sg back pain, continues to be out of the prescription for Hydrocodone that normally takes for pain control [facility] Coronavirus screen: Proceed with normal triage. Ebola Screen: Patient negative for fever greater than or equal to 101.5 degrees Fahrenheit, and additional compatible Ebola Virus Disease symptoms Patient denies exposure to infectious person. Patient denies travel to an Ebola-affected area in the 21 days before illness onset. No symptoms or risks identified at this time. Initial Sepsis Screen: Does the patient meet any 2 criteria? No. Patient's initial sepsis screen is negative. Does the patient have a suspected source of infection? No. Patient's initial sepsis screen is negative. Risk Assessment: Do you want to hurt yourself or someone else? Patient reports no desire to harm self or others. Onset of symptoms was July 21, 2019. Care prior to arrival: None. 04:51 Method Of Arrival: Ambulatory sg 04:51 Acuity: EDER 4 sg Historical: - Allergies: 04:49 No Known Allergies; sg - PMHx: 04:49 chronic back pain; GERD; Hyperlipidemia; Hypertension; sg - PSHx: 04:49 Right kidney removal; sg - Immunization history:: Adult Immunizations up to date. - Social history:: Smoking status: Patient denies any tobacco usage or history of. Screenin:51 Abuse screen: Denies threats or abuse. Denies injuries from another. Nutritional sg screening: No deficits noted. Tuberculosis screening: No symptoms or risk factors identified. Never had TB. Fall Risk None identified. Assessment: 04:51 General: Appears in no apparent distress. well groomed, well developed, well nourished, sg Behavior is calm, cooperative, appropriate for age. Pain: Complains of pain in lumbar area and right low back Quality of pain is described as aching. Neuro: Level of Consciousness is awake, alert, obeys commands, Oriented to person, place, time, situation, Moves all extremities. Speech is normal, Facial symmetry appears normal. Cardiovascular: Capillary refill is brisk in bilateral fingers Patient's skin is warm and dry. Chest pain is denied. Respiratory: Airway is patent Respiratory effort is even, unlabored, Respiratory pattern is regular, symmetrical. GI: No signs and/or symptoms were reported involving the gastrointestinal system. : No signs and/or symptoms were reported regarding the genitourinary system. EENT: No signs and/or symptoms were reported regarding the EENT system. Derm: Skin is pink, warm \T\ dry. Musculoskeletal: Circulation, motion, and sensation intact. Range of motion: intact in all extremities. 06:50 Reassessment: Patient and/or family updated on plan of care and expected duration. Pain ea level reassessed. Patient is alert, oriented x 3, equal unlabored respirations, skin warm/dry/pink. Vital Signs: 04:51 BP 140 / 77; Pulse 87; Resp 17; Temp 97.9; Pulse Ox 99% on R/A; Pain 8/10; sg 04:51 Weight 95.25 kg; Height 6 ft. 0 in. (182.88 cm); sg 06:30 BP 132 / 68; Pulse 70; Resp 18; Pulse Ox 98% on R/A; ea 04:51 Body Mass Index 28.48 (95.25 kg, 182.88 cm) ED Course: 04:48 Patient arrived in ED. ds1 04:50 Arm band placed on. sg 04:51 No provider procedures requiring assistance completed. sg 04:52 Triage completed. sg 05:13 Pricila Romero, RN is Primary Nurse. ea 05:19 Patient has correct armband on for positive identification. Bed in low position. Call ea light in reach. 06:03 Justin Gardinre NP is PHCP. pm1 06:03 Gio Healy MD is Attending Physician. pm1 07:07 IV discontinued, intact, bleeding controlled, No redness/swelling at site. Pressure ea dressing applied. Administered Medications: 06:49 Drug: Ondansetron (Zofran) 4 mg Route: PO; ea 07:08 Follow up: Response: No adverse reaction ea 06:50 Drug: Lidoderm 5 % (700 mg/patch) 1 patches Route: Topical; Site: affected area; ea 06:50 Drug: morphine 4 mg Route: IM; Site: left deltoid; ea 07:07 Follow up: Response: No adverse reaction; RASS: Alert and Calm (0) ea Outcome: 06:59 Discharge ordered by . pm1 07:06 Discharged to home ambulatory, with family. ea 07:06 Condition: stable 07:06 Discharge instructions given to patient, Instructed on discharge instructions, follow up and referral plans. medication usage, Demonstrated understanding of instructions, follow-up care, medications, Prescriptions given X 2. 07:07 Patient left the ED. ea Signatures: René Alaniz, RN RN Isa Schneider ds1 Justin Gardiner, DOUG ATTENDANT SALES pm1 Pricila Romero RN RN nikunj
--- NOTE | 2019-07-22 18:40 | EDPHYS ---
Physician Documentation [facility] Name: Eagle Nolasco Age: 63 yrs Sex: Male : 1955 Arrival Date: 07/21/2019 Time: 04:48 Bed 13 Private MD: ED Physician Gio Healy HPI: 07/20 06:32 This 63 yrs old Male presents to ER via Ambulatory with complaints of Back pm1 Pain. 06:32 The patient presents with pain that is chronic, with no known mechanism of injury. The pm1 symptoms are located in the low back. Onset: The symptoms/episode began/occurred 3 month(s) ago. Pain in right buttocks with radiation down his right leg. Associated signs and symptoms: Pertinent negatives: dysuria, fever, headache, incontinence, numbness, tingling, urinary retention, weakness. The problem was sustained from unknown cause. Modifying factors: The patient symptoms are alleviated by hydrocodone. Severity of symptoms: in the emergency department the symptoms are unchanged. The patient has been recently seen at the [facility] Emergency Department, for similar complaints was given a prescription for pain medications, and benzodiazepine. Historical: - Allergies: 04:49 No Known Allergies; sg - PMHx: 04:49 chronic back pain; GERD; Hyperlipidemia; Hypertension; sg - PSHx: 04:49 Right kidney removal; sg - Immunization history:: Adult Immunizations up to date. - Social history:: Smoking status: Patient denies any tobacco usage or history of. ROS: 06:32 Constitutional: Negative for fever, chills, and weight loss, Cardiovascular: Negative pm1 for chest pain, palpitations, and edema, Respiratory: Negative for shortness of breath, cough, wheezing, and pleuritic chest pain, Abdomen/GI: Negative for abdominal pain, nausea, vomiting, diarrhea, and constipation. 06:32 MS/Extremity: Negative for injury and deformity, Skin: Negative for injury, rash, and discoloration, Neuro: Negative for headache, weakness, numbness, tingling, and seizure. 06:32 Back: Positive for of the Right buttocks with pain radiating down right leg. 06:32 All other systems are negative. Exam: 06:32 Constitutional: This is a well developed, well nourished patient who is awake, alert, pm1 and in no acute distress. Head/Face: Normocephalic, atraumatic. Neck: Trachea midline, no thyromegaly or masses palpated, and no cervical lymphadenopathy. Supple, full range of motion without nuchal rigidity, or vertebral point tenderness. No Meningismus. Chest/axilla: Normal chest wall appearance and motion. Nontender with no deformity. No lesions are appreciated. 06:32 Skin: Warm, dry with normal turgor. Normal color with no rashes, no lesions, and no evidence of cellulitis. MS/ Extremity: Pulses equal, no cyanosis. Neurovascular intact. Full, normal range of motion. 06:32 Cardiovascular: Exam negative for acute changes, Rate: normal, Rhythm: regular, Pulses: no pulse deficits are appreciated. 06:32 Respiratory: Exam negative for acute changes, respiratory distress, shortness of breath. 06:32 Back: pain, that is mild, of the Right buttocks, normal spinal alignment noted, vertebral tenderness, is not appreciated. 06:32 Neuro: Orientation: is normal, Mentation: is normal, Motor: is normal, moves all fours, Sensation: is normal, no obvious gross deficits. Vital Signs: 04:51 BP 140 / 77; Pulse 87; Resp 17; Temp 97.9; Pulse Ox 99% on R/A; Pain 8/10; sg 04:51 Weight 95.25 kg; Height 6 ft. 0 in. (182.88 cm); sg 06:30 BP 132 / 68; Pulse 70; Resp 18; Pulse Ox 98% on R/A; ea 04:51 Body Mass Index 28.48 (95.25 kg, 182.88 cm) sg MDM: 06:04 Patient medically screened. pm1 06:22 Data reviewed: vital signs. Data interpreted: Pulse oximetry: on room air is 99 %. pm1 Interpretation: normal. 06:43 ED course: Patient reports that a prescription for hydrocodone is going to be filled on pm1 tomorrow or Monday. It was prescribed by Dr. Min and [facility] is currently out of the medications. He was told that they will have it in stock tomorrow or Monday. Patient was seen here 07/17/2019 for the same complaint and given a prescription for tramadol and Valium. GENERAL OPERATIONS AGENT aware reviewed and patient received 4 days and 7 days of prescriptions respectively. I informed the patient that I cannot prescribe hydrocodone and that I will not give a prescription for any narcotics because it will likely prevent him from getting his prescription for hydrocodone from the pharmacy. 06:58 Counseling: I had a detailed discussion with the patient and/or guardian regarding: the pm1 historical points, exam findings, and any diagnostic results supporting the discharge/admit diagnosis, the need for outpatient follow up, for definitive care, a body painter, to return to the emergency department if symptoms worsen or persist or if there are any questions or concerns that arise at home. Administered Medications: 06:49 Drug: Ondansetron (Zofran) 4 mg Route: PO; ea 07:08 Follow up: Response: No adverse reaction ea 06:50 Drug: Lidoderm 5 % (700 mg/patch) 1 patches Route: Topical; Site: affected area; ea 06:50 Drug: morphine 4 mg Route: IM; Site: left deltoid; ea 07:07 Follow up: Response: No adverse reaction; RASS: Alert and Calm (0) ea Disposition: 07:13 Co-signature as Attending Physician, Gio Healy MD. [email or web address] Disposition: 07/21/19 06:59 Discharged to Home. Impression: Lumbago with sciatica, right side. - Condition is Stable. - Discharge Instructions: Chronic Back Pain, Sciatica. - Prescriptions for Lidoderm 5 % Topical adhesive patch,medicated - apply 1 patch by TRANSDERMAL route once daily As needed; 30 Transdermal Patch. Cyclobenzaprine 10 mg Oral Tablet - take 1 tablet by ORAL route every 8 hours As needed; 30 tablet. - Medication Reconciliation Form, Thank You Letter, Antibiotic Education, Prescription Opioid Use form. - Follow up: Emergency Department; When: As needed; Reason: Worsening of condition. Follow up: Private Physician; When: 2 - 3 days; Reason: Recheck today's complaints, Continuance of care, Re-evaluation by your physician. - Problem is new. - Symptoms have improved. Signatures: René Alaniz RN RN sg Marinas, Patrick, NP DATA ANALYST ETL DEVELOPER pm1 Pricila Romero RN RN ea Holmes, Maurice, MD MD [email or web address] Corrections: (The following items were deleted from the chart) 07:07 06:59 07/21/2019 06:59 Discharged to Home. Impression: Lumbago with sciatica, right ea side. Condition is Stable. Forms are Medication Reconciliation Form, Thank You Letter, Antibiotic Education, Prescription Opioid Use. Follow up: Emergency Department; When: As needed; Reason: Worsening of condition. Follow up: Private Physician; When: 2 - 3 days; Reason: Recheck today's complaints, Continuance of care, Re-evaluation by your physician. Problem is new. Symptoms have improved. pm1
== END 2019-07-21 07:07 | disposition home or self-care (01) ==
LOC: ER 04:45
DX: M54.41 Lumbago with sciatica, right side (principal); I10 Essential (primary) hypertension
CPT/HCPCS: 96372; 99283

== ENCOUNTER 2019-07-22 03:20 | Emergency (ER) | payer OTHER ==
--- OUTSIDE RECORDS SUMMARY | 2019-07-22 03:22 | XMS REPORT | Clinical Summary ---
:1955 Author Organization [facility] Address [address] [place] [address] Care Team Providers Name Role Phone Rebecca [...] Not on file Implants Implanted Type Area Hot Room Attendant Device Shelf Model / Identifier Expiration Serial / Date Lot Stent,Uret Polaris Loop Dual Durometer Percuflex 6fr 28cm - [id number] Uro Stent Right: [place] 06/20/2015 155-234 / Implanted: Qty: 1 on 12/25/2012 by Stan Gee MD [facility] / [id number] Results Not on fileafter 07/21/2018 Insurance Payer Benefit Plan / Group Subscriber ID Type Phone A ddress MEDICARE MEDICARE A B xxxxxxxxxxx Medicare AETNA - [place]GD CARE AETNA INDEMNITY NON CONTR xxxxxxxxx Comm AETNA - MGD CARE AETNA HMO POS QPOS xxxxxxxxx HMO/POS Advance Directives For more information, please contact:[address] [phone] Code Status Date Activated Date Inactivated Comments [...]
--- OUTSIDE RECORDS SUMMARY | 2019-07-22 03:22 | XMS REPORT ---
:1955 Author Organization [facility] t Address [address] [place] [address] Care Team Providers Name Role Phone Jamal Min MD Attending Clinician Salma ASIAN ART CURATOR-CCarley Attending Clinician MARCELINA Attending Clinician Unavailable MARCELINA [...] ID 2019-05-07 2019-05-07 Office SANTOS Min [id number] 13:20:03 13:50:03 Visit Renato Berry AMBULATOR [id number] Y [id number] 2019-04-30 2019-04-30 Office SANTOS Marsh [id number] 09:28:36 09:58:19 Visit Nancy Howe AMBULATOR [id number] Y [id number] Results Test Description Test Time Test Comments Results Result Comments Source TISSUE EXAM 2017-11-30 Surgical Pathology 16:37:00 Report Case: [id number] Authorizing Provider: Jarrod Osborne MD Collected: 11/28/2017 1600 Ordering Location: [facility] Received: 11/29/2017 0823 SERVICES Pathologist: López [...] IS PRESENT Signing Pathologist Direct Phone Line: [phone] ically signed by López Cherry MD on 11/30/2017 at 4:37 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 There is also stromal edema. No dysplasia is seen on any of the sections.[id number] x 2Hematuria, cancer of renal pelvisA. Right [...]
[2019-07-22] MEDS ORDERED: MORPHINE 4 MG/ML SYR ONE (03:58)
[2019-07-22] MEDS ORDERED: ONDANSETRON 4 MG (ODT) TAB ONE (03:59)
[2019-07-22 04:22] VITALS: BP 150/95; TEMP 98; O2SAT 100
--- NOTE | 2019-07-22 19:42 | ER ---
Nurse's Notes [facility] Name: Eagle Nolasco Age: 63 yrs Sex: Male : 1955 Arrival Date: 07/22/2019 Time: 03:21 Bed 6 Private MD: Diagnosis: Chronic back pain. Lumbar radiculopathy Presentation: 07/21 03:36 Chief complaint: Patient states: i was here yesterday for the same problem. my leg mg2 hurts, its my sciatica. i took cyclobenzaprine at 0100 and its not helping. Coronavirus screen: Proceed with normal triage. Patient denies a cough. Patient denies shortness of breath or difficulty breathing. Patient denies measured and/or subjective temperature greater than 100.4F prior to today's visit. Patient denies travel on a cruise ship or to a country the [facility] currently lists as an affected area. Patient denies contact with known and/or suspected case of COVID-19. Ebola Screen: No symptoms or risks identified at this time. Initial Sepsis Screen: Does the patient meet any 2 criteria? No. Patient's initial sepsis screen is negative. Does the patient have a suspected source of infection? No. Patient's initial sepsis screen is negative. Risk Assessment: Do you want to hurt yourself or someone else? Patient reports no desire to harm self or others. Onset of symptoms was July 22, 2019. 03:36 Method Of Arrival: Ambulatory mg2 03:36 Acuity: EDER 4 mg2 Triage Assessment: 03:39 General: Appears uncomfortable, Behavior is calm, cooperative. Pain: Complains of pain mg2 in right leg. EENT: No signs and/or symptoms were reported regarding the EENT system. Neuro: Level of Consciousness is awake, alert, obeys commands, Oriented to person, place, time, situation. Cardiovascular: Capillary refill < 3 seconds Patient's skin is warm and dry. Respiratory: Airway is patent Respiratory effort is even, unlabored, Respiratory pattern is regular, symmetrical. GI: No signs and/or symptoms were reported involving the gastrointestinal system. : No deficits noted. Derm: Skin is intact, is healthy with good turgor, Skin is pink, warm \T\ dry. normal. Musculoskeletal: Circulation, motion, and sensation intact. Capillary refill < 3 seconds, Reports pain in right leg. Historical: - Allergies: 03:39 No Known Allergies; mg2 - Home Meds: 03:43 amlodipine 10 mg tab 1 tab once daily [Active]; aspirin 81 mg Oral chew [Active]; mg2 atorvastatin 10 mg Oral tab 1 tab once daily [Active]; folic acid 800 mcg Oral tab 1 tab once daily [Active]; lisinopril 40 mg Oral tab 1 tab once daily [Active]; metoprolol tartrate 100 mg Oral tab [Active]; metoprolol tartrate 100 mg Oral tab 1 tab once daily [Active]; pantoprazole 40 mg Oral TbEC 1 tab once daily [Active]; tadalafil Oral [Active]; tamsulosin 0.4 mg Oral cp24 1 cap once daily [Active]; Vitamin D Oral [Active]; - PMHx: 03:39 chronic back pain; GERD; Hyperlipidemia; Hypertension; mg2 - Immunization history:: Flu vaccine is up to date. - Social history:: Smoking status: Patient denies any tobacco usage or history of. Patient uses alcohol, on a daily basis. Patient/guardian denies using street drugs, IV drugs. Screenin:41 Abuse screen: Denies threats or abuse. Denies injuries from another. Nutritional mg2 screening: No deficits noted. Tuberculosis screening: No symptoms or risk factors identified. Fall Risk None identified. Assessment: 03:41 General: see triage assessment. mg2 04:14 Reassessment: Patient states feeling better. Patient states symptoms have improved. mg2 Vital Signs: 03:36 BP 175 / 111; Pulse 94; Resp 18; Temp 98.3(TE); Pulse Ox 97% on R/A; Weight 95.25 kg; mg2 Height 6 ft. 0 in. (182.88 cm); Pain 8/10; 04:14 BP 150 / 95; Pulse 85; Resp 18; Temp 98; Pulse Ox 100% on R/A; Pain 2/10; mg2 03:36 Body Mass Index 28.48 (95.25 kg, 182.88 cm) mg2 ED Course: 03:21 Patient arrived in ED. ds1 03:27 Juan Lew MD is Attending Physician. pkl 03:32 Tacos Mulligan, DULCE is Primary Nurse. mg2 03:38 Triage completed. mg2 03:38 Arm band placed on. mg2 03:42 Patient has correct armband on for positive identification. Pulse ox on. NIBP on. Door mg2 closed. Warm blanket given. 03:42 No provider procedures requiring assistance completed. mg2 04:14 Patient did not have IV access during this emergency room visit. mg2 Administered Medications: 03:55 Drug: morphine 4 mg Route: IM; Site: right deltoid; ea 04:14 Follow up: Response: No adverse reaction; Marked relief of symptoms; RASS: Alert and mg2 Calm (0) 03:56 Drug: Zofran (Ondansetron) 4 mg Route: PO; ea 04:13 Follow up: Response: No adverse reaction mg2 Outcome: 03:58 Discharge ordered by . jared 04:14 Patient left the ED. mt 04:15 Discharged to home ambulatory. mg2 04:15 Condition: stable 04:15 Discharge instructions given to patient, Instructed on discharge instructions, follow up and referral plans. medication usage, Demonstrated understanding of instructions, follow-up care, medications, Prescriptions given X 1. Signatures: Juan Lew MD MD pkl Isa Simpson dsCarolynn Pierre [place] Pricila Romero RN RN ea Gardose, Michele, RN RN mg2 Corrections: (The following items were deleted from the chart) 03:41 03:41 General: Appears mg2 mg2
--- NOTE | 2019-07-22 19:42 | EDPHYS ---
Physician Documentation [facility] Name: Eagle Nolasco Age: 63 yrs Sex: Male : 1955 Arrival Date: 07/22/2019 Time: 03:21 Bed 6 Private MD: ED Physician Juan Lew HPI: 07/21 03:49 This 63 yrs old Male presents to ER via Ambulatory with complaints of Leg pkl Pain - L. 03:49 The complaints affect the right leg. Onset: The symptoms/episode began/occurred 6 pkl week(s) ago. Patient has H/O lumbar radiculopathy. Has appointment with back specialist on 07/25/19 for injection of the back. Out of pain medication. Was here yesterday for same complaints.. Historical: - Allergies: 03:39 No Known Allergies; mg2 - Home Meds: 03:43 amlodipine 10 mg tab 1 tab once daily [Active]; aspirin 81 mg Oral chew [Active]; mg2 atorvastatin 10 mg Oral tab 1 tab once daily [Active]; folic acid 800 mcg Oral tab 1 tab once daily [Active]; lisinopril 40 mg Oral tab 1 tab once daily [Active]; metoprolol tartrate 100 mg Oral tab [Active]; metoprolol tartrate 100 mg Oral tab 1 tab once daily [Active]; pantoprazole 40 mg Oral TbEC 1 tab once daily [Active]; tadalafil Oral [Active]; tamsulosin 0.4 mg Oral cp24 1 cap once daily [Active]; Vitamin D Oral [Active]; - PMHx: 03:39 chronic back pain; GERD; Hyperlipidemia; Hypertension; mg2 - Immunization history:: Flu vaccine is up to date. - Social history:: Smoking status: Patient denies any tobacco usage or history of. Patient uses alcohol, on a daily basis. Patient/guardian denies using street drugs, IV drugs. ROS: 03:49 Eyes: Negative for injury, pain, redness, and discharge, ENT: Negative for injury, pkl pain, and discharge, Neck: Negative for injury, pain, and swelling, Cardiovascular: Negative for chest pain, palpitations, and edema, Respiratory: Negative for shortness of breath, cough, wheezing, and pleuritic chest pain, Abdomen/GI: Negative for abdominal pain, nausea, vomiting, diarrhea, and constipation. 03:49 Back: Positive for pain with movement. 03:49 : Negative for urinary symptoms. 03:49 MS/extremity: Positive for pain, of the right leg. 03:49 Skin: Negative for rash. 03:49 Neuro: Negative for altered mental status. Exam: 03:49 Head/Face: Normocephalic, atraumatic. Eyes: Pupils equal round and reactive to light, pkl extra-ocular motions intact. Lids and lashes normal. Conjunctiva and sclera are non-icteric and not injected. Cornea within normal limits. Periorbital areas with no swelling, redness, or edema. ENT: Nares patent. No nasal discharge, no septal abnormalities noted. Tympanic membranes are normal and external auditory canals are clear. Oropharynx with no redness, swelling, or masses, exudates, or evidence of obstruction, uvula midline. Mucous membranes moist. Neck: Trachea midline, no thyromegaly or masses palpated, and no cervical lymphadenopathy. Supple, full range of motion without nuchal rigidity, or vertebral point tenderness. No Meningismus. Chest/axilla: Normal chest wall appearance and motion. Nontender with no deformity. No lesions are appreciated. Cardiovascular: Regular rate and rhythm with a normal S1 and S2. No gallops, murmurs, or rubs. Normal PMI, no JVD. No pulse deficits. Respiratory: Lungs have equal breath sounds bilaterally, clear to auscultation and percussion. No rales, rhonchi or wheezes noted. No increased work of breathing, no retractions or nasal flaring. Abdomen/GI: Soft, non-tender, with normal bowel sounds. No distension or tympany. No guarding or rebound. No evidence of tenderness throughout. 03:49 Back: pain, that is moderate, of the lower back, Straight leg raises: right lower extremity illicits pain, at 30 degrees. 03:49 : Exam negative for acute changes. 03:49 Musculoskeletal/extremity: Exam is negative for acute changes. 03:49 Skin: Exam negative for rash. 03:49 Neuro: Orientation: is normal, Mentation: is normal, Cranial nerves: grossly normal, Motor: is normal. Vital Signs: 03:36 BP 175 / 111; Pulse 94; Resp 18; Temp 98.3(TE); Pulse Ox 97% on R/A; Weight 95.25 kg; mg2 Height 6 ft. 0 in. (182.88 cm); Pain 8/10; 04:14 BP 150 / 95; Pulse 85; Resp 18; Temp 98; Pulse Ox 100% on R/A; Pain 2/10; mg2 03:36 Body Mass Index 28.48 (95.25 kg, 182.88 cm) mg2 MDM: 03:28 Patient medically screened. pkl 03:49 Data reviewed: vital signs, nurses notes. pkl Administered Medications: 03:55 Drug: morphine 4 mg Route: IM; Site: right deltoid; ea 04:14 Follow up: Response: No adverse reaction; Marked relief of symptoms; RASS: Alert and mg2 Calm (0) 03:56 Drug: Zofran (Ondansetron) 4 mg Route: PO; ea 04:13 Follow up: Response: No adverse reaction mg2 Disposition: 07/22/19 03:58 Discharged to Home. Impression: Chronic back pain. Lumbar radiculopathy. - Condition is Stable. - Prescriptions for Ultram 50 mg Oral Tablet - take 1 tablet by ORAL route every 8 hours As needed; 15 tablet. - Medication Reconciliation Form, Thank You Letter, Antibiotic Education, Prescription Opioid Use form. - Follow up: Private Physician; When: 2 - 3 days; Reason: Re-evaluation by your physician. - Problem is chronic. - Symptoms are unchanged. Signatures: Juan Lew MD MD pkl Thompson, Moriah mt Antunez, Elena, RN RN ea Gardose, Michele, RN RN mg2 Corrections: (The following items were deleted from the chart) 04:14 03:58 07/22/2019 03:58 Discharged to Home. Impression: Chronic back pain. Lumbar mt radiculopathy. Condition is Stable. Forms are Medication Reconciliation Form, Thank You Letter, Antibiotic Education, Prescription Opioid Use. Follow up: Private Physician; When: 2 - 3 days; Reason: Re-evaluation by your physician. Problem is chronic. Symptoms are unchanged. pkl
== END 2019-07-22 04:14 | disposition home or self-care (01) ==
LOC: ER 03:20
DX: G89.29 Other chronic pain (principal); M54.16 Radiculopathy, lumbar region; I10 Essential (primary) hypertension; E78.5 Hyperlipidemia, unspecified; Z79.82 Long term (current) use of aspirin
CPT/HCPCS: 96372; 99283

== ENCOUNTER 2019-09-18 21:18 | Emergency (ER) | payer OTHER ==
--- OUTSIDE RECORDS SUMMARY | 2019-09-18 21:20 | XMS REPORT | Continuity of Care Document ---
:1955 Author Organization [facility] t Address 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 Cigarettes smoked 2017-11-29 2017-11-[address] [facility] - current (pack per 00:00:00 00:00:00 Medical Center day) - Reported Cigarette 2017-11-29 2017-11-[address] [facility] - pack-years 00:00:00 00:00:00 [facility] Center Tobacco Comment 2013-06-18 2013-06-[address] [facility] [address] [facility] - 00:00:00 00:00:00 [facility] Center Alcohol Comment 2013-06-18 2013-06-18 was drinking [address] [facility] - 00:00:00 00:00:00 drinks per week Medical C enter four months ago Smoking Status Start Date Stop Date Source Former smoker 2017-11-29 00:00:00 2017-11-29 00:00:[address] [facility] [address] [facility] - [facility] Center Medications Ordered Filled Start Stop Current Ordering Indication Dosage Frequency Signature Comments Components Source Medication Medication Date Date Medication? Clinician (SIG) Name Name tamsulosin 2017-02 Yes .4mg QD Take 1 [facility] (FLOMAX) 0-09 capsule [facility] - 0.4 mg Cap 00:00: (0.4 mg Medi madelin 24 hr 00 total) by Center capsule mouth daily. FOLIC ACID Yes 1mg QD Take [address] ORAL 5-05 by mouth [facility] - 06:55: daily. Medical 36 Preemption ATORVASTATI 2012-02 Yes 10mg Take [address] [facility] N CALCIUM 1-05 by mouth. [facility] - (LIPITOR 10:53: Medical ORAL) 02 Center AMLODIPINE 2012-02 Yes 10mg QD Take [address] BESYLATE 1-05 by mouth [facility] - (NORVASC 10:53: daily. Medical ORAL) 02 Center LISINOPRIL 2012-02 Yes 40mg QD Take [address] ORAL 1-05 by mouth [facility] - 10:53: daily. Medical 02 Center pantoprazol 2012-02 Yes 40mg QD Take [address] [facility] e 0-30 by mouth [facility] - (PROTONIX) 14:36: daily. Medic al 40 MG 15 Center tablet CHOLECALCIF 2012-02 Yes QD Take by [facility] STU, 0-30 mouth [facility] - VITAMIN D3, 14:36: daily. Medi madelin (VITAMIN D3 15 Center ORAL) aspirin 81 2012-02 Yes QD Take by [facility] mg Tab 0-30 mouth [facility] - 14:36: daily. Medical 15 Center Procedures This patient has no known procedures. Encounters Start End Encounter Admission Attending Care Care Encounter Source Date/Time Date/Time Type Type Clinicians Facility Department ID 2019-09-10 2019-09-10 Office SANTOS Garnett [id number] 09:39:57 10:09:57 Visit Basil AMBULATOR [id number] Y [id number] [id number] 2019-08-14 2019-08-14 Office Renato Min BCM [id number]. [id number] 13:12:12 14:09:42 Visit C-Arm, Pmr Siemens AMBULATOR 350.1.13. 21 Y [id number] [id number] 2019-07-25 2019-07-25 Office Min, SANTOS [id number] 09:14:36 09:29:36 Visit Renato Berry AMBULATOR [id number] Y [id number] [id number] 2019-05-07 2019-05-07 Office SANTOS Min [id number] 13:20:03 13:50:03 Visit Renato Berry AMBULATOR [id number] Y [id number] [id number] 2019-04-30 2019-04-30 Office SANTOS Marsh [id number] 09:28:36 09:58:19 Visit Nancy Howe AMBULATOR [id number] Y [id number] [id number] Results Test Description Test Time Test Comments Results Result Comments Source TISSUE EXAM 2017-11-30 Surgical Pathology 16:37:00 Report Case: [id number] Authorizing Provider: Jarrod Osborne MD Collected: 11/28/2017 1600 Ordering Location: 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 There is also stromal edema. No dysplasia is seen on any of the sections.[id number] x 2Hematuria, cancer of renal pelvisA. Right [...]
--- OUTSIDE RECORDS SUMMARY | 2019-09-18 21:20 | XMS REPORT | Clinical Summary ---
:1955 Author Organization [facility] Address [address] [place] [address] Care Team Providers Name Role Phone Rebecca [...] Not on file Implants Implanted Type Area Street Sweeper Device Shelf Model / Identifier Expiration Serial / Date Lot Stent,Uret Polaris Loop Dual Durometer Percuflex 6fr 28cm - [id number] Uro Stent Right: [place] 06/20/2015 [id number] / Implanted: Qty: 1 on 12/25/2012 by Stan Gee MD [facility] / [id number] Results Not on fileafter 09/17/2018 Insurance Payer Benefit Plan / Group Subscriber ID Type Phone A ddress MEDICARE MEDICARE A B xxxxxxxxxxx Medicare AETNA - [place] CARE AETNA INDEMNITY NON CONTR xxxxxxxxx Comm AETNA - [place] CARE AETNA HMO POS QPOS xxxxxxxxx HMO/POS Advance Directives For more information, please contact:[address] [phone] Code Status Date Activated Date Inactivated Comments [...]
--- OUTSIDE RECORDS SUMMARY | 2019-09-18 21:21 | XMS REPORT | Summary of Care ---
:1955 Author Organization [facility] [place] [address] Care Team Providers Name Role Phone MD Hector Primary Care Provider Reason for Visit Reason Comments Hypogonadism Erectile Dysfunction Encounter Details Date Type Department Care Team Description 09/10/2019 Office Visit [facility] Garnett PA Hypogonadism; Erectile Medicine Urology [address] Dys[address] [facility] [address], [place] [id number] [phone] Allergies No Known Allergiesdocumented as of this encounter (statuses as of 09/10/2019) Medications Medication Sig Dispensed Refills Start Date End Date Status metoprolol (TOPROL-XL) 50 Take 50 mg by 0 10/15/2012 Active MG XL tablet mouth daily. pantoprazole (PROTONIX) Take 40 mg by 0 11/09/2012 Active 40 MG tablet mouth daily. atorvastatin (LIPITOR) 10 Take 10 mg by 0 10/10/2012 Active MG tablet mouth daily. lisinopril (PRINIVIL, Take 40 mg by 0 Active ZESTRIL) 40 MG tablet mouth daily. FOLIC ACID Take 1 mg by 0 Active mouth daily. Cholecalciferol (VITAMIN Take 1,000 0 Active D) 1000 UNITS CAPS Units by mouth daily. amlodipine (NORVASC) 10 Take 10 mg by 0 Active MG tabletIndications: Hx mouth daily. of bladder cancer tadalafil (CIALIS) 5 MG Take 1 Tab by 30 Tab 11 09/15/2014 Active tablet mouth daily. ZOSTAVAX 32323 UNT/0.65ML 0 08/05/2016 Active SUSR Testosterone (TESTOPEL) Inject into 0 Active 75 MG pellets the muscle. Every 3-months Tamsulosin HCl 0.4 MG TAKE ONE 90 Cap 1 12/05/2018 Active CAPSIndications: Elevated CAPSULE BY prostate specific antigen MOUTH EVERY DAY (PSA), Former smoker, History of renal pelvis cancer, Encounter for follow-up surveillance of bladder cancer ipratropium (ATROVENT) 0 03/14/2019 Active 0.06 % nasal spray methocarbamol (ROBAXIN) TAKE BY MOUTH 1 0 04/23/2019 Active 500 MG tablet TABLET 2 TIMES A DAY PRN SPASMS predniSONE (DELTASONE) 20 0 03/14/2019 Active MG tablet TRAMADOL HCL OR Take by mouth. 0 Active diazePAM (VALIUM OR) Take by mouth. 0 Active hydrocodone-acetaminophen Take 1 Tab by 30 Tab 0 08/01/2019 Active (NORCO) 5-325 mg tablet mouth every 6 hours as needed for Pain. gabapentin (NEURONTIN) TAKE 1 TABLET 60 Tab 0 08/01/2019 Active 600 MG tablet BY MOUTH TWICE A DAY cyclobenzaprine Take 1 Tab by 60 Tab 0 08/01/2019 Active (FLEXERIL) 10 MG tablet mouth 2 times daily as needed for Muscle spasms. diazepam (VALIUM) 10 mg TAKE 1 TABLET 0 07/17/2019 Active tablet BY MOUTH EVERY 8 HOURS NEEDED methylPREDNISolone 4 MG TAKE 6 TABLETS 0 06/06/2019 Active TBPK ON DAY 1 DIRECTED ON PACKAGE AND DECREASE BY 1 TAB EACH DAY FOR A TOTAL OF 6 DAYS naproxen sodium (ANAPROX) TAKE 1 TABLET 0 06/06/2019 Active 550 MG tablet BY MOUTH EVERY 12 HOURS NEEDED FOR PAIN tramadol (ULTRAM) 50 MG TAKE 1 TABLET 0 07/22/2019 Active tablet BY MOUTH EVERY 8 HOURS NEEDED documented as of this encounter (statuses as of 09/10/2019) Active Problems Problem Noted Date Urothelial cancer (HCCode) 11/28/2017 Elevated prostate specific antigen (PSA) 03/08/2016 Encounter for follow-up surveillance of bladder cancer 10/20/2015 History of renal pelvis cancer 03/02/2015 Former smoker 05/05/2014 Malaise and fatigue 04/22/2014 Neoplasm by body site 12/19/2013 Constipation 03/06/2013 Cancer of renal pelvis (HCCode) 01/02/2013 Hematuria 12/19/2012 documented as of this encounter (statuses as of 09/10/2019) Resolved Problems Problem Noted Date Resolved Date Diarrhea 03/06/2013 04/03/2013 documented as of this encounter (statuses as of 09/10/2019) Immunizations Name Administration Dates Next Due Influenza (whole) 11/20/2013 Influenza Quad-PF 01/03/2019 Influenza whole 01/09/2013 documented as of this encounter Social History Tobacco Use Types Packs/Day Years Used Date Former Smoker Cigarettes 03 21 Quit: 01/10/20 03 Smokeless Tobacco: Never Used Alcohol Use Drinks/Week oz/Week Comments Yes 40 Standard drinks or equivalent 40.0 Sex Assigned at Date Recorded Not on file Job Start Date Occupation Industry Not on file Not on file Not on file Travel History Travel Start Travel End No recent travel history available. COVID-19 Exposure Response Date Recorded In the last month, have you been in contact with No / Unsure 09/08/2019 12:32 PM CDT someone who was confirmed or suspected to have Coronavirus / COVID-19? documented as of this encounter Last Filed Vital Signs Not on filedocumented in this encounter Patient Instructions Patient InstructionsFrancisco Garnett PA - 09/10/2019 10:30 AM CDT Plan: -Refill cialis 7 mg QD [facility] discount -Refill cilais 25 mg empower -Refill Sildenafil 110 mg OD -Start TE 0.20 cc SQ (Avoid to the R abdominal wall given hernia) BIW empower, Rx and teaching today fup in 2 months in clinic for CORNELIA Witt PA-C 09/10/2019 documented in this encounter Progress Notes Francisco Garnett PA - 09/10/2019 10:30 AM CDT Patient would like to discuss ED. Currenly tadalafil 7 mg with mild/moderate improvement. He is complaint with this medication. He was also prescribed tadalafil 25 mg on demand. Hx of elevated PSA per Dr. Ventura note, c/w prostatitis. He is on testopel therapy, last procedure 05/08, here to discuss alternative options. Review of Systems: GENERAL: Denies recent weight changes, fever INTEGUMENTARY: Denies rashes, eruptions, dryness, jaundice, changes in skin, hair, or nails, discoloration of skin. EYES: Denies blurred vision, double vision, pain EARS, NOSE, MOUTH AND THROAT: Denies soreness and/or redness of gums, hoarseness, difficulty in swallowing, head colds, discharges, obstruction, postnasal drip, sinus pain, earaches. MUSCULOSKELATAL: Denies joint pain, neck pain, back pain RESPIRATORY: Denies chest pain, wheezing, cough, difficulty breathing, asthma, bronchitis, pneumonia, tuberculosis, shortness of breath, emphysema NEUROLOGIC: Denies fainting, blackouts, seizures, paralysis, tingling, tremors, memory loss, dizzy spells, stroke CARDIOVASCULAR: Denies chest pain, rheumatic fever, rapid heart beat, high blood pressure, swelling, dizziness, faintness, varicose veins, heart valve problems. ENDOCRINE: Denies thyroid trouble, heat and cold intolerance, excessive sweating, thirst, hunger GASTROINTESTINAL: Denies nausea, vomiting, diarrhea, constipation, indigestion, food intolerance, hemorrhoids, jaundice, heartburn, diabetes, hepatitis GENITOURINARY: As per HPI HEMATOLOGIC/LYMPHATIC: Denies anemia, easy bruising or bleeding, past transfusion, swollen glands, blood clotting problems PSYCHOLOGIC: Denies nervousness, mood swings, insomnia, headaches, nightmares, depression ALLERGY/IMMUNOLOGIC: Denies food allergies, plant allergies, environmental allergies OTHER: Denies HIV/AIDS Physical Exam: GENERAL: Well developed, well nourished, in no acute distress HEAD: Normocephalic and atraumatic EXTREMITIES: No clubbing, cyanosis, edema, or deformity SKIN: Intact without lesions or rashes NEURO: MURPHY well. Patient alert and oriented x3. PSYCH: Alert and cooperative; normal mood and affect; normal attention span and concentration Assessment: Here for Testopel however given backorder on medication, discussed alternative therapies, will start TE injections. Plan: -Refill cialis 7 mg QD [facility] discount -Refill cilais 25 mg empower -Refill Sildenafil 110 mg OD -Start TE 0.20 cc SQ (Avoid to the R abdominal wall given hernia) BIW empower, Rx and teaching today fup in 2 months in clinic for CORNELIA Witt PA-C 09/10/2019 documented in this encounter Plan of Treatment Health Maintenance Due Date Last Done Comments COLON CANCER SCREENIN1955 COLONOSCOPY TETANUS SHOT (ADULT) 1968 BMI FOLLOW UP PLAN 12/27/1971 HEPATITIS C SCREENING 12/27/1971 MEDICARE AWV (Initial) 08/21/2015 AAA Screen 2018 PNEUMOVAX >=65 (PPSV23) 2018 FLU VACCINE > 6 MONTHS 09/21/2019 01/03/2019, 11/08/2017 (Declined), 12/14/2016 (Declined), Additional history exists FALL SCREEN 08/13/2020 08/14/2019 documented as of this encounter Results Not on filedocumented in this encounter Visit Diagnoses Diagnosis Encounter for follow-up surveillance of bladder cancer - Primary Elevated prostate specific antigen (PSA) 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
--- NOTE | 2019-09-18 22:09 | ER ---
Nurse's Notes [facility] Name: Eagle Nolasco Age: 63 yrs Sex: Male : 1955 Arrival Date: 09/18/2019 Time: 21:20 Bed 20 Private MD: Diagnosis: Incarcerated abdominal wall hernia, resolved Presentation: 09/17 21:25 Chief complaint: Patient states: Abdominal and umbilical hernia. Surgery scheduled on ca1 Monday with Dr. Edwards but I think it's strangulated. Reports nausea, abdominal pain, and unable to pass gas. Coronavirus screen: Patient denies a cough. Patient denies shortness of breath or difficulty breathing. Patient denies measured and/or subjective temperature greater than 100.4F prior to today's visit. Patient denies travel on a cruise ship or to a country the [facility] currently lists as an affected area. Patient denies contact with known and/or suspected case of COVID-19. Proceed with normal triage. Ebola Screen: Patient negative for fever greater than or equal to 101.5 degrees Fahrenheit, and additional compatible Ebola Virus Disease symptoms Patient denies exposure to infectious person. Patient denies travel to an Ebola-affected area in the 21 days before illness onset. No symptoms or risks identified at this time. Initial Sepsis Screen: Does the patient meet any 2 criteria? No. Patient's initial sepsis screen is negative. Does the patient have a suspected source of infection? No. Patient's initial sepsis screen is negative. Risk Assessment: Do you want to hurt yourself or someone else? Patient reports no desire to harm self or others. Onset of symptoms was September 18, 2019. 21:25 Method Of Arrival: Ambulatory ca1 21:25 Acuity: EDER 3 ca1 Historical: - Allergies: 21: No Known Allergies; ca1 - Home Meds: 21:29 amlodipine 10 mg tab 1 tab once daily [Active]; atorvastatin 10 mg Oral tab 1 tab once ca1 daily [Active]; lisinopril 40 mg Oral tab 1 tab once daily [Active]; metoprolol tartrate 100 mg Oral tab 1 tab once daily [Active]; pantoprazole 40 mg Oral TbEC 1 tab once daily [Active]; tamsulosin 0.4 mg Oral cp24 1 cap once daily [Active]; tadalafil Oral [Active]; folic acid 800 mcg Oral tab 1 tab once daily [Active]; Vitamin D Oral [Active]; - PMHx: 21:29 chronic back pain; GERD; Hyperlipidemia; Hypertension; ca1 - PSHx: 21:29 R radical Nephrectomy; ca1 - Immunization history:: Adult Immunizations up to date. - Social history:: Smoking status: Patient denies any tobacco usage or history of. - Family history:: not pertinent. - Hospitalizations: : No recent hospitalization is reported. Screenin:55 Abuse screen: Denies threats or abuse. Nutritional screening: No deficits noted. jd3 Tuberculosis screening: No symptoms or risk factors identified. Fall Risk Ambulatory Aid- None/Bed Rest/Nurse Assist (0 pts). Gait- Normal/Bed Rest/Wheelchair (0 pts) Mental Status- Oriented to own ability (0 pts). Total Carcamo Fall Scale indicates No Risk (0-24 pts). Assessment: 21:35 General: Appears in no apparent distress. uncomfortable, Behavior is calm, cooperative, jd3 appropriate for age. Pain: Complains of pain in abdomen. Neuro: Level of Consciousness is awake, alert, obeys commands, Oriented to person, place, time, situation. Cardiovascular: Denies chest pain, Capillary refill < 3 seconds Patient's skin is warm and dry. Respiratory: Airway is patent Respiratory effort is even, unlabored, Respiratory pattern is regular, symmetrical. GI: Abdomen is round Reports lower abdominal pain, upper abdominal pain. : No signs and/or symptoms were reported regarding the genitourinary system. EENT: No signs and/or symptoms were reported regarding the EENT system. Derm: Skin is intact, Skin is dry, Skin is normal, Skin temperature is warm. Musculoskeletal: Circulation, motion, and sensation intact. Range of motion: intact in all extremities. 21:50 Reassessment: Patient appears in no apparent distress at this time. Patient and/or jd3 family updated on plan of care and expected duration. Pain level reassessed. Patient is alert, oriented x 3, equal unlabored respirations, skin warm/dry/pink. Dr. Stephen reduced hernia Patient states feeling better. 22:16 Reassessment: Patient appears in no apparent distress at this time. Patient and/or jd3 family updated on plan of care and expected duration. Pain level reassessed. Patient is alert, oriented x 3, equal unlabored respirations, skin warm/dry/pink. Patient denies pain at this time. Patient states feeling better. Vital Signs: 21:29 BP 152 / 103; Pulse 88; Resp 15 S; Temp 97.3(TE); Pulse Ox 96% on R/A; Weight 90.72 kg ca1 (R); Height 6 ft. 0 in. (182.88 cm) (R); 21:29 Body Mass Index 27.12 (90.72 kg, 182.88 cm) ca1 ED Course: 21:20 Patient arrived in ED. bp1 21:27 Triage completed. ca1 21:29 Arm band placed on right wrist. ca1 21:34 Lawrence Stephen MD is Attending Physician. rn 21:53 Hilton Stern RN is Primary Nurse. jd3 21:55 Patient has correct armband on for positive identification. Bed in low position. Call jd3 light in reach. Side rails up X 1. Pulse ox on. NIBP on. 22:08 Shen Edwards MD is Referral Physician. rn 22:10 Abdominal binder placed on pt. jd3 22:16 No provider procedures requiring assistance completed. Patient did not have IV access jd3 during this emergency room visit. Administered Medications: No medications were administered Outcome: 22:08 Discharge ordered by . rn 22:16 Discharged to home ambulatory. jd3 22:16 Condition: stable 22:16 Discharge instructions given to patient, Instructed on discharge instructions, follow up and referral plans. Demonstrated understanding of instructions, follow-up care. 22:17 Patient left the ED. jd3 Signatures: Lawrence Stephen MD MD rn Davies, Jonathon, RN RN jAnisa Brantley RN RN ca1 Lisa Henson bp1
--- NOTE | 2019-09-18 22:09 | EDPHYS ---
Physician Documentation [facility] Name: Eagle Nolasco Age: 63 yrs Sex: Male : 1955 Arrival Date: 09/18/2019 Time: 21:20 Bed 20 Private MD: ED Physician Lawrence Stephen HPI: 09/17 22:04 This 63 yrs old Male presents to ER via Ambulatory with complaints of Hernia. rn 22:04 The patient presents with abdominal pain. Onset: The symptoms/episode began/occurred rn today. The symptoms do not radiate. The symptoms are described as achy, crampy, dull. Modifying factors: The symptoms are alleviated by nothing, the symptoms are aggravated by touching the area. Severity of pain: At its worst the pain was moderate in the emergency department the pain is unchanged. The patient has not experienced similar symptoms in the past. Reports scheduled for hernia surgery this next Monday, reports today around 3PM, feels different, + hernia pain, causing nausea and unable to use bathroom, not able to massage it in like he used to. . Historical: - Allergies: : No Known Allergies; ca1 - Home Meds: : amlodipine 10 mg tab 1 tab once daily [Active]; atorvastatin 10 mg Oral tab 1 tab once ca1 daily [Active]; lisinopril 40 mg Oral tab 1 tab once daily [Active]; metoprolol tartrate 100 mg Oral tab 1 tab once daily [Active]; pantoprazole 40 mg Oral TbEC 1 tab once daily [Active]; tamsulosin 0.4 mg Oral cp24 1 cap once daily [Active]; tadalafil Oral [Active]; folic acid 800 mcg Oral tab 1 tab once daily [Active]; Vitamin D Oral [Active]; - PMHx: : chronic back pain; GERD; Hyperlipidemia; Hypertension; ca1 - PSHx: 21:29 R radical Nephrectomy; ca1 - Immunization history:: Adult Immunizations up to date. - Social history:: Smoking status: Patient denies any tobacco usage or history of. - Family history:: not pertinent. - Hospitalizations: : No recent hospitalization is reported. ROS: 22:04 Constitutional: Negative for fever, chills, and weight loss, Eyes: Negative for injury, rn pain, redness, and discharge, Neck: Negative for injury, pain, and swelling, Cardiovascular: Negative for chest pain, palpitations, and edema, Respiratory: Negative for shortness of breath, cough, wheezing, and pleuritic chest pain, Abdomen/GI: + right abd pain at location of hernia and epigastric pain MS/Extremity: Negative for injury and deformity, Skin: Negative for injury, rash, and discoloration, Neuro: Negative for headache, weakness, numbness, tingling, and seizure. Exam: 22:04 Constitutional: This is a well developed, well nourished patient who is awake, alert, rn sitting, seems uncomfortable Abdomen/GI: soft, + right lateral abdominal wall hernia, soft, no discoloration, easily reduced with patient supine, with resolution of symptoms. Vital Signs: 21:29 BP 152 / 103; Pulse 88; Resp 15 S; Temp 97.3(TE); Pulse Ox 96% on R/A; Weight 90.72 kg ca1 (R); Height 6 ft. 0 in. (182.88 cm) (R); 21:29 Body Mass Index 27.12 (90.72 kg, 182.88 cm) ca1 Procedures: 22:04 Performed Reduction of abdominal hernia, without pain medication or sedation, tolerated rn well, felt positive reduction with resolution of symptoms.. MDM: 21:34 Patient medically screened. rn 22:04 Differential diagnosis: incarcerated abdominal hernia. Data reviewed: vital signs, rn nurses notes, and as a result, I will discharge patient. Counseling: I had a detailed discussion with the patient and/or guardian regarding: the historical points, exam findings, and any diagnostic results supporting the discharge/admit diagnosis, the need for outpatient follow up, to return to the emergency department if symptoms worsen or persist or if there are any questions or concerns that arise at home. Response to treatment: the patient's symptoms have markedly improved after treatment, the patient's condition has returned to base line, the patient is now symptom free, and as a result, I will discharge patient. Special discussion: I discussed with the patient/guardian in detail that at this point there is no indication for admission to the hospital. It is understood, however, that if the symptoms persist or worsen the patient needs to return immediately for re-evaluation. Based on the history and exam findings, there is no indication for further emergent testing or inpatient evaluation. I discussed with the patient/guardian the need to see the general surgeon for further evaluation of the symptoms. ED course: Hernia reduced, patient ambulatory without pain, reports symptoms of nausea and abd pain have now resolved after reduction, placed in abdominal binder, will dc home with return precautions, otherwise can f/u for surgery as planned. Has pre-op tomorrow. . 09/17 21:47 Order name: [facility]. Order: Abdominal binder; Complete Time: 22:10 rn Administered Medications: No medications were administered Disposition: 09/18/19 22:08 Discharged to Home. Impression: Incarcerated abdominal wall hernia, resolved. - Condition is Stable. - Discharge Instructions: Hernia, Adult. - Medication Reconciliation Form, Thank You Letter, Antibiotic Education, Prescription Opioid Use form. - Follow up: Shen Edwards MD; When: As needed; Reason: Recheck today's complaints, Re-evaluation by your physician. - Problem is new. - Symptoms have improved. Signatures: Lawrence Stephen MD MD rn Davies, Jonathon, RN RN jd3 Acob, DULCE Lange RN ca1 Corrections: (The following items were deleted from the chart) 22:17 22:08 09/18/2019 22:08 Discharged to Home. Impression: Incarcerated abdominal wall jd3 hernia, resolved. Condition is Stable. Forms are Medication Reconciliation Form, Thank You Letter, Antibiotic Education, Prescription Opioid Use. Follow up: Shen Edwards; When: As needed; Reason: Recheck today's complaints, Re-evaluation by your physician. Problem is new. Symptoms have improved. rn
== END 2019-09-18 22:17 | disposition home or self-care (01) ==
LOC: ER 21:18
DX: K46.9 Unspecified abdominal hernia without obstruction or gangrene (principal); I10 Essential (primary) hypertension; E78.5 Hyperlipidemia, unspecified
CPT/HCPCS: 99283

== ENCOUNTER 2019-09-23 07:14 | Observation (INO) | payer OTHER ==
--- NOTE | 2019-09-19 14:54 | RAD REPORT ---
EXAM DESCRIPTION: RAD - Chest Pa And Lat (2 Views) - 09/19/2019 2:44 pm CLINICAL HISTORY: PRE OP FOR SURGERY Chest pain. COMPARISON: CHEST PA AND LAT 2 VIEW dated 12/10/2012 FINDINGS: Small calcified granuloma is present in the left mid lung. The lungs are otherwise clear. The heart is upper limit of normal in size. No displaced fractures.
[2019-09-19 15:58] LABS: Absolute Lymphocytes (CBC) 1.4 K/uL (0.7-4.9); Basophils % 0.3 % (0-1.3); Hematocrit 49.7 % (39.6-49.0); Lymphocytes % 16.1 % (15.3-44.8); MPV 9.4 fL (7.6-11.3); RBC Red Blood Cell Count 5.72 M/uL (4.33-5.43)
--- OUTSIDE RECORDS SUMMARY | 2019-09-23 07:16 | XMS REPORT | Continuity of Care Document ---
:1955 Author Organization [facility] t Address 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 00:00: Medi madelin 00 [place] Ureteral Ureteral Disease Active 2012-02 [facility] S t mass mass - [facility] - [...] Date Quantity Comments Source Sex Assigned At [facility] Cigarettes smoked 2017-11-29 2017-11-[address] [facility] - current (pack per 00:00:00 [facility]00 [facility] - Reported Cigarette 2017-11-29 2017-11-[address] [facility] - pack-years 00:00:00 00:00:00 [facility] Tobacco Comment 2013-06-18 2013-06-[address] [facility] [address] [facility] - 00:00:00 00:00:00 [facility] Alcohol Comment 2013-06-18 2013-06-18 was drinking [address] [facility] - 00:00:00 00:00:00 drinks per week Medical C enter four months ago Smoking Status Start Date Stop Date Source Former smoker 2017-11-29 00:00:00 2017-11-29 00:00:[address] [facility] Medications Ordered Filled Start Stop Current [...] mouth [facility] - 06:55: daily. Medical 36 [place] ATORVASTATI 2012-02 Yes 10mg Take 10 mg [...] ID 2019-09-10 2019-09-10 Office SANTOS Garnett [id number] 09:39:57 10:09:57 Visit Basil AMBULATOR [id number] Y [id number] [id number] [id number] 2019-08-14 2019-08-14 Office Renato Min BCM 1.2.840. 114 [id number] 13:12:12 14:09:42 Visit C-Arm, Pmr Siemens AMBULATOR 350.1.13. 21 Y [id number] [id number] 2019-07-25 2019-07-25 Office Min, SANTOS [id number] 09:14:36 09:29:36 Visit Renato Berry AMBULATOR 350.1.13.21 Y 0.2.7.2.686 [id number] 2019-05-07 2019-05-07 Office SANTOS Min [id number] 13:20:03 13:50:03 Visit Renato Berry AMBULATOR 350.1.13.21 Y 0.2.7.2.686 [id number] 2019-04-30 2019-04-30 Office SANTOS Marsh [id number] 09:28:36 09:58:19 Visit Nancy Howe AMBULATOR 350.1.13.21 Y 0.2.7.2.686 [id number] [id number] Results Test Description Test Time Test Comments Results Result Comments Source TISSUE EXAM 2017-11-30 Surgical Pathology 16:37:00 Report Case: [id number] Authorizing Provider: Jarrod Osborne MD Collected: 11/28/2017 1600 Ordering Location: [facility] PERI[facility] Received: 11/29/2017 0823 SERVICES [...] IS PRESENT Signing Pathologist Direct Phone Line: [phone] ically signed by López Cherry MD on 11/30/2017 at 4:37 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 There is also stromal edema. No dysplasia is seen on any of the sections.[id number] x 2Hematuria, cancer of renal pelvisA. Right [...]
--- OUTSIDE RECORDS SUMMARY | 2019-09-23 07:16 | XMS REPORT | Clinical Summary ---
:1955 Author Organization [facility] Address [address] [place] [address] Care Team Providers Name Role Phone Rebecca [...] Not on file Implants Implanted Type Area 911 Telecommunicator Device Shelf Model / Identifier Expiration Serial / Date Lot Stent,Uret Polaris Loop Dual Durometer Percuflex 6fr 28cm - [id number] Uro Stent Right: [place] 06/20/2015 [id number] / Implanted: Qty: 1 on 12/25/2012 by Stan Gee MD [facility] / [id number] Results Not on fileafter 09/22/2018 Insurance Payer Benefit Plan / Group Subscriber ID Type Phone A ddress MEDICARE MEDICARE A B xxxxxxxxxxx Medicare AETNA - [place] CARE AETNA INDEMNITY NON CONTR xxxxxxxxx Comm AETNA - [place] CARE AETNA HMO POS QPOS xxxxxxxxx HMO/POS Advance Directives For more information, please contact:[address] [phone] Code Status Date Activated Date Inactivated Comments [...]
[2019-09-23] MEDS ORDERED: CEFAZOLIN/SWI 1gm 1 GM/10 ML SYR ONE (07:53)
[2019-09-23] MEDS ORDERED: Ringers Lactate 1,000 ML IV ONE (07:53)
[2019-09-23] MEDS ORDERED: propofoL 200 MG/20 ML VIAL IV ONE (08:19)
[2019-09-23] MEDS ORDERED: LIDOCAINE 2% MPF 5 ML VIAL ONE (08:19)
[2019-09-23] MEDS ORDERED: ROCURONIUM 50 MG/5 ML VIAL IV ONE (08:19)
[2019-09-23] MEDS ORDERED: dexAMETHasone 10 MG/ML VIAL ONE (08:19)
[2019-09-23] MEDS ORDERED: MIDAZOLAM HCL 2 MG/2 ML INJ ONE (08:20)
[2019-09-23] MEDS ORDERED: FENTANYL CITR 250 MCG/5 ML ONE (08:20)
[2019-09-23] MEDS ORDERED: EPHEDRINE SULF 50 MG/ML VIAL ONE (09:05)
[2019-09-23] MEDS ORDERED: NA CHLORIDE 0.9% 1,000 ML ONE (09:19)
[2019-09-23] MEDS ORDERED: SODIUM CHLORIDE 0.9% 10ML INJ IV PRN (10:17)
[2019-09-23] MEDS ORDERED: HYDROCODONE/APAP 7.5/325 MG TAB PO PRN (10:17)
--- NOTE | 2019-09-23 10:17 | P.BOP ---
Preoperative diagnosis: incarcerated large ventral incisional hernia Postoperative diagnosis: multifocal multiple incarcerated large ventral incisional hernias, ext adhe Primary procedure: 1. Open repair incisional incarcerated RLQ ventral spigelian hernia w mesh Secondary procedure: 2. Open repair incarcerated upper-mid ventral hernia Other procedure(s): 3. Laparoscopic extensive lysis of adhesions Parts Puller: Melanie Juarez) Estimated blood loss: <30cc Specimen: none Findings: multiple separate hernias with incarcerated small bowel Anesthesia: General Complications: None Implants: ventralight ST wit ECho PS Transferred to: Recovery Room Condition: Good
[2019-09-23] MEDS ORDERED: NEOSTIGMINE 1 MG/ML -5 ML ONE (10:28)
[2019-09-23] MEDS ORDERED: GLYCOPYRROLATE 0.2 MG/ML SYR ONE (10:28)
[2019-09-23] MEDS: HYDROMORPHONE HCL 1 MG/ML INJ IV PRN ×6 (10:47→23:26)
[2019-09-23] MEDS: ONDANSETRON 4 MG/2 ML VIAL IV PRN ×2 (10:47→16:18)
[2019-09-23] MEDS: HYDROMORPHONE HCL 2 MG/ML inj ONE ×5 (10:57→11:12)
[2019-09-23] MEDS: NA CHLORIDE 0.9% 1,000 ML IV SCH ×2 (11:00→12:32)
[2019-09-23] MEDS ORDERED: MORPHINE 4 MG/ML SYR ONE (11:22)
[2019-09-23] MEDS: MEPERIDINE HCL 25 MG/ML SYR ONE ×2 (11:22→11:29)
[2019-09-23] MEDS: CEFOXITIN/SWI 1gm 1 GM/10 ML SYR IV SCH ×3 (12:31→23:27)
[2019-09-23 12:36] VITALS: BMI 27.1
[2019-09-23] MEDS: PANTOPRAZOLE 40 MG INJ IVP SCH (18:39)
--- NOTE | 2019-09-23 21:10 | OP ---
Date of Procedure: 09/23/2019 Surgeon: Shen Edwards MD Preoperative Diagnosis: Large incarcerated ventral incisional hernia. Postoperative Diagnosis: Multifocal multiple incarcerated large ventral hernias, one on the right lo wer quadrant and another one on the upper mid ventral, both of them incarcerated with small bowel. Procedures: 1.Open repair of incisional incarcerated right lower quadrant ventral spigelian hernia with mesh. 2.Open repair of incarcerated open mid ventral hernia. 3.Laparoscopic extensive lysis of adhesions with diagnostic laparoscopy. Findings: Multiple separate hernias, one on the right lower quadrant from previous incision with inc arcerated small bowel and another one on the upper mid ventral region, both of them repaired separate ly. The patient also has extensive intraabdominal adhesions from previous surgical intervention appa rently. Implant: Ventralight ST mesh with Echo positioning system. Indications: This is a case of a 63-year-old patient, who comes to us with a large ventral hernia in the right lower side, given the pain and discomfort, incarcerated bowel going through it, is getting bigger, is getting tender. So, repair of that hernia fully explained with the possible help of mesh , laparoscopic versus open with benefits and risks including, but not limited to infection, bleeding, damage to adjacent structures, anesthesia complication, recurrence, WA, and even . He also und erstands this may not relieve his symptoms. He might need more than one surgical intervention. He u nderstand that we may be using mesh for that hernia repair. Pros and cons of mesh placement discusse d with the patient and after answering all his questions to his satisfaction, then he did consent for the use of mesh. The patient understands the importance of no heavy lifting and also importance of losing weight. Description Of Procedure: The patient was brought to the operating room and placed in supine positio n. Anesthesia was done without complication. Abdominal area was prepped and draped in sterile fashi on. A time-out was called. Local anesthesia was applied followed by sharp incision in the infraumbi lical region. Incision was carried down to fascia, which was opened under direct vision. Peritoneum was encountered, opened under direct vision. Vicryl #1 placed inside the fascia. Kaitlin trocar was carefully introduced. No bleeding was obtained. After that, I placed the camera in and we noticed 2 different problems. In the upper mid ventral region, the patient has an incarcerated hernia, that we did not see any imaging, but it was there with small bowel coming through it and then the spigelia n hernia that we noticed on the CAT scan with the small bowel going to the cavity between the oblique muscles high enough into the mid abdomen. Before we do that, we have to put a 5 mm trocar and put a LigaSure since the patient had extensive intraabdominal adhesions and we could not see the area unle ss we remove all that adhesions. Once we took a look at those adhesions and carefully removed the maricel wel from the area of the small bowel, then we were able to see the edges of the fascia. The lysis of adhesions was done methodically, took about half the time and we did it with the use of LigaSure. N o enterotomies. Once we have the small bowel and omentum reduced, we were able to see the edges of t he fascia. In order for this to close this, we have to close them in multiple layers. So what I did , I just made a counter incision in the previous incision and then proceeded to clean the fascia edge s. In order to have edges to be approximated properly, we have to make that incision. An incision w as made all the way through and a small incision was also made on the ventral region to repair that s econd hernia. We did a small hernia first. We carefully go into the ventral region, cleaned the fas rosalia edges, and then after that, proceeded to close this with a [id number] fashion with multiple #2 nylon in a running fashion. Then, the subcutaneous tissue was closed with 3-0 chromic. We preser angely and saved the bowel all time with no enterotomies. Then, after that, we went to the right lower quadrant. Once again, the fascia edges have to be clean. The part of the hernia sac was excoriated and that was called between the oblique muscles. Then, after that, we proceeded to close in layers. Internal transverse and external oblique were carefully delineated. We proceeded to close those mus cles in layers. Before we closed, we dropped in a Ventralight ST mesh with Echo positioning system a nd we tied all the stitches except the one in middle that allowed me to inflate the balloon. Once we have all the stitches secured except the last one, we went laparoscopically, obtained pneumoperitone um once again, and make sure that ventral hernia had no leakage and looks nice, and then we went into the mesh place, inflated the balloon, straightened the mesh to cover the defect by about 3-5 cm and then after that, secured the mesh with CapSure device fixation system. The mesh was nice and flat. The balloon was deflated, removed through the trocar site, and we continued the fixation. No bleedin g. The area of the lysis of adhesions with no bleeding. The area of the open ventral hernia with no bleeding. At that moment, I proceeded then to deflate the area under direct visualization. After t hat, we removed the trocars. We continued the closure of the right lower quadrant multiple layers an d then after that, we closed that with 3-0 chromic and then the skin with polo. Sponge counts and instrument counts were correct. The patient was sent to recovery in stable condition. The patient will be admitted for IV pain control, will be only on clear liquid, ambulation. This patient has ext ensive intraabdominal adhesions and multiple hernias repair with muscle also repaired. We expect the patient to have certain degree of pain medication that will be controlled in the hospital. We encou raged ambulation, incentive spirometry, and abdominal binder. ANANDA/ULISES Voice ID: [id number] Report ID: [id number]
[2019-09-24] MEDS: HYDROMORPHONE HCL 1 MG/ML INJ IV PRN ×3 (02:49→11:30)
[2019-09-24] MEDS: NA CHLORIDE 0.9% 1,000 ML IV SCH (02:49)
[2019-09-24] MEDS: ONDANSETRON 4 MG/2 ML VIAL IV PRN (05:23)
[2019-09-24 05:53] LABS: Absolute Lymphocytes (CBC) 0.6 K/uL (0.7-4.9); Basophils % 0.2 % (0-1.3); Hematocrit 45.5 % (39.6-49.0); Lymphocytes % 4.1 % (15.3-44.8); MPV 9.4 fL (7.6-11.3); RBC Red Blood Cell Count 5.22 M/uL (4.33-5.43)
[2019-09-24 06:25] LABS: Potassium 4.5 mmol/L (3.5-5.1)
[2019-09-24] MEDS: PANTOPRAZOLE 40 MG INJ IVP SCH (09:09)
[2019-09-24 09:16] VITALS: O2SAT 97
[2019-09-24 09:32] VITALS: BP 152/90; TEMP 98.6
[2019-09-24 09:43] LABS: Blood Morphology Comment NOT SEEN (NOT SEEN); Platelet Estimate ADEQ; Urine White Blood Cell Casts OK
--- NOTE | 2019-09-24 10:45 | P.DS ---
Admission Date: 09/23/19 Discharge Date: 09/24/19 Disposition: ROUTINE DISCHARGE Discharge Condition: GOOD Vital Signs/Physical Exam: Temp Pulse Resp BP Pulse Ox 98.6 F 95 H 16 152/90 H 91 09/24/19 08:00 09/24/19 08:00 09/24/19 08:00 09/24/19 08:00 09/24/19 08:00 General: Alert, Oriented x3, Cooperative Neck: Supple Respiratory: Normal air movement Cardiovascular: No edema, Normal pulses Gastrointestinal: Soft and benign Musculoskeletal: No erythema Integumentary: No breakdown Neurological: Normal speech Laboratory Data at Discharge: WBC 15.3 K/uL (4.3-10.9) H D 09/24/19 05:34 Hgb 14.8 g/dL (13.6-17.9) 09/24/19 05:34 Hct 45.5 % (39.6-49.0) 09/24/19 05:34 Plt Count 212 K/uL (152-406) 09/24/19 05:34 Sodium 140 mmol/L (136-145) 09/24/19 05:34 Potassium 4.5 mmol/L (3.5-5.1) 09/24/19 05:34 BUN 29 mg/dL (7-18) H 09/24/19 05:34 Creatinine 1.82 mg/dL (0.55-1.3) H 09/24/19 05:34 Glucose 143 mg/dL (74-106) H 09/24/19 05:34 Home Medications: Amlodipine Besylate [Norvasc] 10 mg PO DAILY 03/31/16 Aspirin [Aspirin EC 81 MG] 81 mg PO DAILY 03/31/16 Atorvastatin Calcium [Lipitor] 10 mg PO BEDTIME 03/31/16 Cholecalciferol (Vitamin D3) [Vitamin D 1000 Iu Tab] 1,000 unit PO DAILY 03/31/16 Folic Acid 1 mg PO DAILY 03/31/16 Lisinopril [Zestril] 40 mg PO DAILY 03/31/16 Metoprolol Succinate [Toprol Xl] 50 mg PO DAILY 03/31/16 Pantoprazole [Protonix Tab] 40 mg PO DAILY 03/31/16 Tadalafil [Cialis] 7 mg PO DAILY 03/31/16 Tamsulosin HCl [Flomax] 0.4 mg PO DAILY 09/19/19 Testosterone Enanthate [Xyosted] 50 mg SQ 09/19/19 Patient Discharge Instructions: abdominal binder while out of bed. No heavy lifting Diet: AHA Activity: No lifting more than 10 lbs Followup: Shen Edwards MD [ACTIVE - CAN ADMIT] - 1 Week
== END 2019-09-24 12:20 | disposition home or self-care (01) ==
LOC: OR 07:14 → 2ND 10:19
PROVIDERS: ADMIT Surgery; ATTEND Surgery
PROC: 0WQF0ZZ Repair Abdominal Wall, Open Approach (ICD-10-PCS; 2019-09-23)
PROC: 0DNU4ZZ Release Omentum, Percutaneous Endoscopic Approach (ICD-10-PCS; 2019-09-23)
PROC: 0WUF0JZ Supplement Abdominal Wall with Synthetic Substitute, Open Approach (ICD-10-PCS; principal; 2019-09-23 08:30)
DX: K43.6 Other and unspecified ventral hernia with obstruction, without gangrene (principal); K66.0 Peritoneal adhesions (postprocedural) (postinfection); J84.10 Pulmonary fibrosis, unspecified; Z79.82 Long term (current) use of aspirin; Z79.899 Other long term (current) drug therapy
CPT/HCPCS: 85025 ×2; 80048 ×2; 36415 ×2; 71046; 97161; 49561 ×2; 49568; 49329; J2704; C9113 ×2; J2250; J1170 ×9; J3010; J1100; J2175; J2710; J0690; J7120; J7030 ×3; J2405 ×3; C1781; G0379; G0378 ×3; 93005

== ENCOUNTER 2020-06-10 19:51 | Emergency (ER) | payer OTHER ==
--- OUTSIDE RECORDS SUMMARY | 2020-06-10 19:55 | XMS REPORT | Continuity of Care Document ---
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 0- [facility] - 00:[facility] 00 [place] 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 00:00: Medi madelin 00 Center Ureteral Ureteral Disease [facility] 2012[facility]02 [facility] - [facility] 00 [place] Allergies, Adverse Reactions, Alerts Allergy Allergy Status Severity Reaction(s) Onset Inactive Treating Comm ents Source Name Type Date Date Clinician Vancomyc Propensi Active Itching 2013-[address] [facility] ty to -13 Syndrome [facility] - Analogue adverse 00:00: Medical s reaction 00 Center s Social History Social Habit Start Date Stop Date Quantity Comments Source Sex Assigned At [facility] Dari yusuf - [facility] Cigarettes smoked 2017-11-29 2017-11-[address] [facility] - current (pack per 00:00:00 00:00:00 Medical Center day) - Reported Cigarette 2017-11-29 2017-11-29 [facility] - pack-years 00:00:00 00:00:00 [facility] Tobacco use and 2017-11-29 2017-11-29 Never used [facility] - exposure 00:00:00 00:00:00 [facility] Alcohol intake 2017-11-29 2017-11-29 Current drinker GEORGE duffy [facility] - 00:00:00 00:00:00 of alcohol [facility] (finding) Alcohol Comment 2013-06-18 2013-06-18 was drinking [address] [facility] - 00:00:00 00:00:00 drinks per week Medical C enter four months ago Tobacco Comment 2013-06-18 2013-06-[address] [facility] k[facility] - 00:00:00 00:00:00 [facility] Smoking Status Start Date Stop Date Source Former smoker 2017-11-29 00:00:00 2017-11-29 00:00:00 [facility] - [facility] Medications Ordered Filled Start Stop Current Ordering Indication Dosage Frequency Signature Comments Components Source Medication Medication Date Date Medication? Clinician (SIG) Name Name pantoprazol 2017-02 Yes 40mg QD Take [address] e 0-09 by mouth [facility] - (PROTONIX) 22:10: daily. Medic al 40 MG 55 [place] tablet ATORVASTATI 2017-02 Yes 10mg Take [address] N CALCIUM 0-09 by mouth. [facility] - (LIPITOR 22:10: Medical ORAL) 55 Center AMLODIPINE 2017-02 Yes 10mg QD Take [address] BESYLATE 0-09 by mouth [facility] - (NORVASC 22:10: daily. Medical ORAL) 55 Center LISINOPRIL 2017-02 Yes 40mg QD Take [address] ORAL 0-09 by mouth [facility] - 22:10: daily. Medical 55 Center CHOLECALCIF 2017-02 Yes QD Take by [facility] STU, 0-09 mouth [facility] - VITAMIN D3, 22:10: daily. Medi madelin (VITAMIN D3 55 Center ORAL) FOLIC ACID 2017-02 Yes 1mg QD Take [address] ORAL 0-09 by mouth [facility] - 22:10: daily. [address] aspirin 81 2017-02 Yes QD Take by [facility] mg Tab 0-09 mouth [facility] - 22:10: daily. [address] tamsulosin 2017-02 Yes .4mg QD Take 1 [facility] (FLOMAX) 0-09 capsule [facility] - 0.4 mg Cap 00:00: (0.4 mg Medi madelin 24 hr 00 total) by Center capsule mouth daily. Procedures This patient has no known procedures. Plan of Care Planned Activity Planned Date Details Comments Source Future Scheduled Test 2020-10-[address] [facility] - 00:00:00 (Season Ended) [code = [facility] INFLUENZA VACCINE (Season Ended)] Future Scheduled Test 2020-02-[address] [facility] - 00:00:00 (12+) [code = [facility] DEPRESSION SCREENING (12+)] Future Scheduled Test 2018 PNEUMOCOCCAL 65+ YRS [facility] - 00:00:00 (1 of 1 - [facility] [id number] PCV13) [code = PNEUMOCOCCAL 65+ YRS (1 of 1 - [id number] PCV13)] Future Scheduled Test 2003-12-27 SHINGLES VACCINES ([address] [facility] - 00:00:00 of 2) [code = SHINGLES [facility] VACCINES (1 of 2)] Future Scheduled Test 1972 DTAP/TDAP/TD VACCINES [facility] - 00:00:00 (1 - Tdap) [code = Medical C [facility] DTAP/TDAP/TD VACCINES (1 - Tdap)] Future Scheduled Test 1971-12-27 HEPATITIS C SCREENING [facility] - 00:00:00 [code = HEPATITIS C [facility] SCREENING] Future Scheduled Test 1955 [facility] [facility] colon (procedure) [code = 988500840] Future Appointment 2020-06-12 Kota Beltran MD, Becky [facility] - 12:40:00 [address], [place] [address] Future Appointment 2020-06-12 Kota Beltran MD, [facility]y [facility] - 12:40:00 [address], [place] [address] Encounters Start End Encounter Admission Attending Care Care Encounter Source Date/Time Date/Time Type Type Clinicians Facility Department ID 2020-03-25 2020-03-25 Office SANTOS Osborne [id number] 08:58:32 12:26:42 Visit Jarrod AMBULATOR [id number] Y [id number] [id number] 2020-03-13 2020-03-13 Office SANTOS Garnett [id number] 08:08:35 08:38:35 Visit Basil AMBULATOR [id number] Y 0.2.7.2.686 [id number] 2019-12-09 2019-12-09 Office Renato MinM 1.2.840. 114 [id number] 08:09:52 08:39:52 Visit C-Arm, Pmr Siemens AMBULATOR 350.1.13. 21 Y 0.2.7.2.686 [id number] 2019-09-10 2019-09-10 Office SANTOS Garnett [id number] 09:39:57 10:09:57 Visit Basil AMBULATOR [id number] Y 0.2.7.2.686 [id number] 2019-08-14 2019-08-14 Office Pako Renatoclifford Berry BCM 1.2.840. 114 [id number] 13:12:12 14:09:42 Visit C-Arm, Pmr Siemens AMBULATOR 350.1.13. 21 Y 0.2.7.2.686 [id number] 2019-07-25 2019-07-25 Office SANTOS Min [id number] 09:14:36 09:29:36 Visit Renato Ray AMBULATOR 350.1.13.21 Y 0.2.7.2.686 [id number] 2019-05-07 2019-05-07 Office SANTOS Min [id number] 13:20:03 13:50:03 Visit Renato Ray AMBULATOR 350.1.13.21 Y 0.2.7.2.686 [id number] 2019-04-30 2019-04-30 Office SANTOS Marsh [id number] 09:28:36 09:58:19 Visit Nancy Howe AMBULATOR 350.1.13.21 Y 0.2.7.2.686 [id number] Results Test Description Test Time Test Comments Results Result Comments Source TISSUE EXAM 2017-11-30 Surgical Pathology 16:37:00 Report Case: [id number] Authorizing Provider: Jarrod Osborne MD Collected: 11/28/2017 1600 Ordering Location: [facility] Received: 11/29/2017 0823 SERVICES Pathologist: López [...] IS PRESENT Signing Pathologist Direct Phone Line: [phone] ically signed by López Cherry MD on 11/30/2017 at 4:37 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 There is also stromal edema. No dysplasia is seen on any of the sections.[id number] x 2Hematuria, cancer of renal pelvisA. Right [...] the lesion" consists of multiple fragments of mercdao-mccall soft tissue measuring 1.5 x 1.5 x 0.3 cm in aggregate entirely submitted in B1. CG/ew A-B. Performed.
[2020-06-10] MEDS ORDERED: LIDOCAINE 1% MPF 5 ML VIAL ONE (21:31)
[2020-06-10] MEDS ORDERED: TETANUS & DIPHTHERIA TOX,ADULT 0.5 ML VIAL ONE (21:38)
--- NOTE | 2020-06-10 21:59 | ER ---
Nurse's Notes [facility] Name: Eagle Nolasco Age: 64 yrs Sex: Male : 1955 Arrival Date: 06/10/2020 Time: 19:52 Bed 24 Private MD: Diagnosis: Laceration without foreign body of left thumb without damage to nail Presentation: 06/10 20:15 Chief complaint: Patient states: Lac on L thumb 45 mins [facility]PITAL AIDE by a utility knife while ca1 stripping cable. Bleeding controlled. Coronavirus screen: Client denies travel out of the [place] in the last 14 days. At this time, the client does not indicate any symptoms associated with coronavirus-19. Ebola Screen: Patient negative for fever greater than or equal to 101.5 degrees Fahrenheit, and additional compatible Ebola Virus Disease symptoms Patient denies exposure to infectious person. Patient denies travel to an Ebola-affected area in the 21 days before illness onset. No symptoms or risks identified at this time. Complicating Factors: There are no complicating factors for this patient. Initial Sepsis Screen: Does the patient meet any 2 criteria? No. Patient's initial sepsis screen is negative. Does the patient have a suspected source of infection? No. Patient's initial sepsis screen is negative. Risk Assessment: Do you want to hurt yourself or someone else? Patient reports no desire to harm self or others. Onset of symptoms was June 10, 2020. 20:15 Method Of Arrival: Ambulatory ca1 20:15 Acuity: EDER 4 ca1 Historical: - Allergies: 20:18 No Known Allergies; ca1 - PMHx: 20:18 chronic back pain; GERD; Hyperlipidemia; Hypertension; ca1 - PSHx: 20:18 R radical Nephrectomy; ca1 20:18 Hernia repair; ca1 - Immunization history:: Client reports having NOT received the Covid vaccine. Last tetanus immunization: unknown, Flu vaccine is up to date. - Social history:: Smoking status: Patient denies any tobacco usage or history of. Screenin:18 Abuse screen: Denies threats or abuse. Denies injuries from another. Nutritional zb screening: No deficits noted. Tuberculosis screening: No symptoms or risk factors identified. Fall Risk None identified. Assessment: 21:26 General: Appears in no apparent distress. comfortable, Behavior is calm, cooperative, zb appropriate for age. Pain: Complains of pain in palmar aspect of proximal phalanx of left thumb Pain currently is 2 out of 10 on a pain scale. Quality of pain is described as aching, Pain began "couple of hours ago". Neuro: Level of Consciousness is awake, alert, obeys commands, Oriented to person, place, time, situation. Cardiovascular: Patient's skin is warm and dry. Respiratory: Airway is patent Respiratory effort is even, unlabored, Respiratory pattern is regular, symmetrical. GI: No deficits noted. : No deficits noted. EENT: No deficits noted. No signs and/or symptoms were reported regarding the EENT system. Derm: Wound noted palmar aspect of proximal phalanx of left thumb Wound is laceration. Musculoskeletal: Range of motion: intact in all extremities. Injury Description: Laceration sustained to palmar aspect of proximal phalanx of left thumb is clean, 0.5 to 2.5 cm long, not bleeding. 22:17 Reassessment: Patient appears in no apparent distress at this time. Patient and/or zb family updated on plan of care and expected duration. Pain level reassessed. Patient is alert, oriented x 3, equal unlabored respirations, skin warm/dry/pink. d/c instructions given. pt ambulated out. no question at this time. Thumb splinted and jeannette wrapped. Vital Signs: 20:15 BP 118 / 81; Pulse 73; Resp 18 S; Temp 97.3(TE); Pulse Ox 98% on R/A; Weight 86.18 kg ca1 (R); Height 6 ft. 0 in. (182.88 cm) (R); Pain 3/10; 20:15 Body Mass Index 25.77 (86.18 kg, 182.88 cm) ca1 ED Course: 19:52 Patient arrived in ED. as 20:17 Triage completed. ca1 20:18 Arm band placed on right wrist. ca1 20:44 Estefanía Mg [facility]-C [facility]. kb 20:44 Benson Gaytan MD is Attending Physician. kb 20:54 Bethany Villarreal RN is Primary Nurse. zb 21:50 Assist provider with laceration repair on palmar aspect of proximal phalanx of left zb thumb that was 2.5 cm. or less using sutures. Set up tray. Performed by Estefanía Saurav CHANGE ANALYST-C Dressed with band aid, Neosporin, Patient tolerated well. Patient did not have IV access during this emergency room visit. 22:19 Patient has correct armband on for positive identification. Bed in low position. Call zb light in reach. Side rails up X 1. Pulse ox on. Door closed. Noise minimized. 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 Exp: zb 06/06/2021. Lot #: [id number]. } Route: IM; Site: left deltoid; Outcome: 21:59 Discharge ordered by . petey 22:18 Discharged to home ambulatory. zb 22:18 Condition: good 22:18 Discharge instructions given to patient, Instructed on discharge instructions, follow up and referral plans. Demonstrated understanding of instructions, follow-up care. 22:19 Patient left the ED. emmyb Signatures: Estefanía Mg, CHANGE ANALYST-Becky CAMERONP-Deonna Wiley Cheryl RN DULCE ca1 Bethany Villarreal RN RN zb
--- NOTE | 2020-06-10 21:59 | EDPHYS ---
Physician Documentation [facility] Name: Eagle Nolasco Age: 64 yrs Sex: Male : 1955 Arrival Date: 06/10/2020 Time: 19:52 Bed 24 Private MD: ELPIDIO Physician Benson Gaytan HPI: 06/11 00:51 This 64 yrs old Male presents to ER via Ambulatory with complaints of kb Laceration To Hand. 00:51 The patient has a laceration related to: stripping wire and accidentally cut hand kb occurred at home, and there are no complicating factors. The injury was accidental. The laceration(s) is(are) located on the palmar aspect of proximal phalanx of left thumb. Onset: The symptoms/episode began/occurred just prior to arrival. Associated signs and symptoms: The patient has no apparent associated signs or symptoms. The patient has not experienced similar symptoms in the past. The patient has not recently seen a physician. Historical: - Allergies: 06/10 20:18 No Known Allergies; ca1 - PMHx: 20:18 chronic back pain; GERD; Hyperlipidemia; Hypertension; ca1 - PSHx: 20:18 R radical Nephrectomy; ca1 20:18 Hernia repair; ca1 - Immunization history:: Client reports having NOT received the Covid vaccine. Last tetanus immunization: unknown, Flu vaccine is up to date. - Social history:: Smoking status: Patient denies any tobacco usage or history of. ROS: 06/11 00:50 Constitutional: Negative for fever, chills, and weight loss, MS/Extremity: Negative for kb injury and deformity, Neuro: Negative for headache, weakness, numbness, tingling, and seizure. Skin: Positive for laceration(s), of the palmar aspect of proximal phalanx of left thumb. Exam: 00:50 Constitutional: This is a well developed, well nourished patient who is awake, alert, kb and in no acute distress. Head/Face: Normocephalic, atraumatic. Respiratory: Respirations even and unlabored. No increased work of breathing, no retractions or nasal flaring. MS/ Extremity: Pulses equal, no cyanosis. Neurovascular intact. Full, normal range of motion. Neuro: Awake and alert, GCS 15, oriented to person, place, time, and situation. Moves all extremities. Normal gait. 00:50 Skin: injury, laceration(s), the wound is approximately 4 cm(s), of the palmar aspect of proximal phalanx of left thumb, that can be described as clean, no foreign body, linear, without bleeding. Vital Signs: 06/10 20:15 BP 118 / 81; Pulse 73; Resp 18 S; Temp 97.3(TE); Pulse Ox 98% on R/A; Weight 86.18 kg ca1 (R); Height 6 ft. 0 in. (182.88 cm) (R); Pain 3/10; 20:15 Body Mass Index 25.77 (86.18 kg, 182.88 cm) ca1 MDM: 20:55 Patient medically screened. kb 06/11 00:51 Data reviewed: vital signs, nurses notes. Data interpreted: Pulse oximetry: on room air kb is 98 %. Interpretation: normal. Counseling: I had a detailed discussion with the patient and/or guardian regarding: the historical points, exam findings, and any diagnostic results supporting the discharge/admit diagnosis, the need for outpatient follow up, a family practitioner, to return to the emergency department if symptoms worsen or persist or if there are any questions or concerns that arise at home. 06/10 21:01 Order name: Prolene, Sutures; Complete Time: 21:19 kb 06/10 21:01 Order name: Dressing - Wound; Complete Time: 21:19 kb 06/10 21:01 Order name: Gloves, Sterile; Complete Time: 21:19 kb 06/10 21:01 Order name: Setup Suture Tray; Complete Time: 21:19 kb Administered Medications: 06/10 21:24 Drug: Tetanus-Diphtheria Toxoid Adult 0.5 ml {Land Manager: [employer]. Exp: zb 06/06/2021. Lot #: [id number]. } Route: IM; Site: left deltoid; Disposition: 06/11 14:55 Co-signature as Attending Physician, Benson Gaytan MD I agree with the assessment and amisha plan of care. Disposition: 06/10/20 21:59 Discharged to Home. Impression: Laceration without foreign body of left thumb without damage to nail. - Condition is Stable. - Discharge Instructions: Laceration Care, Adult, [id number]. - Medication Reconciliation Form, Thank You Letter, Antibiotic Education, Prescription Opioid Use form. - Follow up: Emergency Department; When: As needed; Reason: Worsening of condition. Follow up: Private Physician; When: 2 - 3 days; Reason: Recheck today's complaints, Continuance of care, Re-evaluation by your physician. Signatures: Estefanía Mg, FOUNDRY PROCESS ENGINEER-C FOUNDRY PROCESS ENGINEER-CkBenson Angel MD MD cha Acob, Cheryl, RN RN ca1 Brown, Zipporah, RN RN zb Corrections: (The following items were deleted from the chart) 06/10 22:19 21:59 06/10/2020 21:59 Discharged to Home. Impression: Laceration without foreign body zb of left thumb without damage to nail. Condition is Stable. Forms are Medication Reconciliation Form, Thank You Letter, Antibiotic Education, Prescription Opioid Use. Follow up: Emergency Department; When: As needed; Reason: Worsening of condition. Follow up: Private Physician; When: 2 - 3 days; Reason: Recheck today's complaints, Continuance of care, Re-evaluation by your physician. kb
[2020-06-10 22:28] VITALS: BP 118/81; TEMP 97.3; O2SAT 98
== END 2020-06-10 22:19 | disposition home or self-care (01) ==
LOC: ER 19:51
PROC: 0JQK0ZZ Repair Left Hand Subcutaneous Tissue and Fascia, Open Approach (ICD-10-PCS; principal; 2020-06-10)
DX: S61.012A Laceration without foreign body of left thumb without damage to nail, initial encounter (principal); W26.8XXA Contact with other sharp object(s), not elsewhere classified, initial encounter; Y93.89 Activity, other specified; Y92.009 Unspecified place in unspecified non-institutional (private) residence as the place of occurrence of the external cause; Z23 Encounter for immunization; I10 Essential (primary) hypertension
CPT/HCPCS: 90471; 90714; 99283

== ENCOUNTER 2023-06-04 04:15 | Emergency (ER) | payer OTHER ==
--- NOTE | 2023-06-04 06:41 | ER ---
Nurse's Notes [facility] Name: Eagle Nolasco Age: 67 yrs Sex: Male : 1955 Arrival Date: 06/04/2023 Time: 04:15 Bed 16 Private MD: Diagnosis: Knee Pain Presentation: 06/03 04:34 Chief complaint: Patient states: Left knee pain s/p fall. Pt had meniscus repair on cm10 Monday by Dr. Pope. Pt states that when he fell he twisted his knee. Coronavirus screen: Client denies travel out of the [place] in the last 14 days. At this time, the client does not indicate any symptoms associated with coronavirus-19. Ebola Screen: Patient denies travel to an Ebola-affected area in the 21 days before illness onset. No symptoms or risks identified at this time. Initial Sepsis Screen: Does the patient meet any 2 criteria? No. Patient's initial sepsis screen is negative. Does the patient have a suspected source of infection? No. Patient's initial sepsis screen is negative. Risk Assessment: Do you want to hurt yourself or someone else? Patient reports no desire to harm self or others. Onset of symptoms was June 04, 2023. 04:34 Method Of Arrival: Wheelchair cm10 04:34 Acuity: EDER 4 cm10 Historical: - Allergies: 04:36 No Known Allergies; cm10 - Home Meds: 04:36 amlodipine 5 mg oral tablet [Active]; atorvastatin 40 mg oral tablet [Active]; folic cm10 acid 800 mcg Oral tab 1 tab once daily [Active]; lisinopril 40 mg Oral tab 1 tab once daily [Active]; metoprolol tartrate 100 mg Oral tab 1 tab once daily [Active]; pantoprazole 40 mg Oral TbEC 1 tab once daily [Active]; tamsulosin 0.4 mg Oral cp24 1 cap once daily [Active]; anastrozole 1 mg oral tablet weekly [Active]; tadalafil 5 mg oral tablet [Active]; hydrochlorothiazide 12.5 mg oral tablet [Active]; prednisone 5 mg Oral tablet [Active]; testosterone enanthate (bulk) two times per week [Active]; - PMHx: 04:36 chronic back pain; GERD; Hyperlipidemia; Hypertension; cm10 - Immunization history:: Adult Immunizations up to date. - Infectious Disease History:: Denies. - Social history:: Smoking status: Patient denies any tobacco usage or history of. Screenin:15 [facility] ED Fall Risk Assessment (Adult) History of falling in the last 3 months, ha1 including since admission Yes- single mechanical fall (1 pt) Confusion or Disorientation No (0 pts) Intoxicated or Sedated No (0 pts) Impaired Gait Yes (1 pt) Mobility Assist Device Used Yes (1 pt) Altered Elimination No (0 pt) Score/Fall Risk Level 3 or more points = High Risk Oriented to surroundings, Maintained a safe environment, Educated pt \T\ family on fall prevention, incl call for assistance when getting out of bed. Abuse screen: Denies threats or abuse. Denies injuries from another. Nutritional screening: No deficits noted. Tuberculosis screening: No symptoms or risk factors identified. Assessment: 04:27 General: Appears uncomfortable, Behavior is calm, cooperative. Pain: Complains of pain ha1 in medial aspect of left knee Pain currently is 7 out of 10 on a pain scale. Aggravated by increased activity. Neuro: Level of Consciousness is awake, alert, obeys commands, Oriented to person, place, time, situation. Cardiovascular: Patient's skin is warm and dry. Respiratory: Airway is patent Respiratory effort is even, unlabored, Respiratory pattern is regular, symmetrical. Musculoskeletal: Circulation, motion, and sensation intact. Reports pain in medial aspect of left knee. 05:30 Reassessment: Patient and/or family updated on plan of care and expected duration. Pain ha1 level reassessed. Patient is alert, oriented x 3, equal unlabored respirations, skin warm/dry/pink. Vital Signs: 04:34 BP 157 / 93; Pulse 80; Resp 16; Temp 97.1; Pulse Ox 97% on R/A; Weight 90.72 kg; Height cm10 6 ft. 0 in. ; Pain 8/10; 05:14 BP 162 / 93; Pulse 78; Resp 17 S; Pulse Ox 97% on R/A; ha1 06:07 BP 169 / 90; Pulse 80; Resp 19 S; Pulse Ox 96% on R/A; ha1 07:08 BP 158 / 89; Pulse 78; Resp 17 S; Temp 98(O); Pulse Ox 97% on R/A; ha1 04:34 Body Mass Index 27.13 (90.72 kg, 182.88 cm) cm10 04:34 Pain Scale: Adult cm10 ED Course: 04:20 Patient arrived in ED. gm2 04:21 Juanito Rea MD is Attending Physician. ec2 04:27 Patient has correct armband on for positive identification. Placed in gown. Bed in low ha1 position. Call light in reach. Side rails up X 1. 04:36 Triage completed. cm10 04:40 Arm band placed on Patient placed in an exam room, on a stretcher. cm10 05:12 Omaira Tapia, RN is Primary Nurse. ha1 06:49 Knee Left 3 View XRAY In Process Unspecified. EDMS 07:07 No provider procedures requiring assistance completed. Patient did not have IV access ha1 during this emergency room visit. 07:08 Provided Education on: medication administration . ha1 Administered Medications: 06:50 Drug: morphine IM 4 mg IM once Route: IM; Site: left deltoid; ha1 07:06 Follow up: Response: No adverse reaction; Marked relief of symptoms; Pain is decreased; ha1 RASS: Alert and Calm (0) Medication: 07:08 VIS not applicable for this client. ha1 Outcome: 06:40 Discharge ordered by MD. ec2 07:07 Discharged to home via wheelchair, with family, ha1 07:07 Condition: stable 07:07 Discharge instructions given to patient, family, Instructed on discharge instructions, follow up and referral plans. Demonstrated understanding of instructions, follow-up care, 07:12 Patient left the ED. ha1 Signatures: Dispatcher [employer] Omaira Iverson RN RN ha1 Siomara Edwards RN RN 10 Juanito Rea MD MD 2 Isela Kirk 2 Corrections: (The following items were deleted from the chart) 04:36 04:34 BP 157 / 93; Pulse 80bpm; Resp 16bpm; Pulse Ox 97% RA; Temp 97.1F; 90.72 kg; cm10 Height 72 in.; BMI: 27.1; Pain 8/10, Adult; cm10
--- NOTE | 2023-06-04 06:41 | EDPHYS ---
Physician Documentation [facility] Name: Eagle Nolasco Age: 67 yrs Sex: Male : 1955 Arrival Date: 06/04/2023 Time: 04:15 Bed 16 Private MD: ED Physician Juanito Rea HPI: 06/03 04:42 This 67 yrs old Male presents to ER via Wheelchair with complaints of Leg ec2 Pain, LEG INJURY AFTER SURGERY ON 06-02-23. 04:42 Patient arrives today for evaluation of injury to the left knee. States that he twisted ec2 his knee. Complaining of pain and significant discomfort. Had a recent meniscus repair 2 days ago. Did not fall, did not otherwise hit his head or lose consciousness.. Historical: - Allergies: 04:36 No Known Allergies; cm10 - Home Meds: 04:36 amlodipine 5 mg oral tablet [Active]; atorvastatin 40 mg oral tablet [Active]; folic cm10 acid 800 mcg Oral tab 1 tab once daily [Active]; lisinopril 40 mg Oral tab 1 tab once daily [Active]; metoprolol tartrate 100 mg Oral tab 1 tab once daily [Active]; pantoprazole 40 mg Oral TbEC 1 tab once daily [Active]; tamsulosin 0.4 mg Oral cp24 1 cap once daily [Active]; anastrozole 1 mg oral tablet weekly [Active]; tadalafil 5 mg oral tablet [Active]; hydrochlorothiazide 12.5 mg oral tablet [Active]; prednisone 5 mg Oral tablet [Active]; testosterone enanthate (bulk) two times per week [Active]; - PMHx: 04:36 chronic back pain; GERD; Hyperlipidemia; Hypertension; cm10 - Immunization history:: Adult Immunizations up to date. - Infectious Disease History:: Denies. - Social history:: Smoking status: Patient denies any tobacco usage or history of. ROS: 04:42 Constitutional: as per hpi ec2 Exam: 04:42 Constitutional: GEN: NAD Head: atraumatic Eyes: EOMI Ears: External ears are ec2 normal. CV: regular rate LUNGS: no respiratory distress ABD: non-distended SKIN: no evidence of rashes MSK: Suprapatellar swelling, good range of motion, intact distal neurovascular status. NEURO: moves all extremities equally Vital Signs: 04:34 BP 157 / 93; Pulse 80; Resp 16; Temp 97.1; Pulse Ox 97% on R/A; Weight 90.72 kg; Height cm10 6 ft. 0 in. ; Pain 8/10; 05:14 BP 162 / 93; Pulse 78; Resp 17 S; Pulse Ox 97% on R/A; ha1 06:07 BP 169 / 90; Pulse 80; Resp 19 S; Pulse Ox 96% on R/A; ha1 07:08 BP 158 / 89; Pulse 78; Resp 17 S; Temp 98(O); Pulse Ox 97% on R/A; ha1 04:34 Body Mass Index 27.13 (90.72 kg, 182.88 cm) cm10 04:34 Pain Scale: Adult cm10 MDM: 04:35 Patient medically screened. ec2 04:42 Data reviewed: vital signs. ED course: Patient arrives today for evaluation of left ec2 knee pain after twisting it with a recent meniscus repair. Examination remarkable for nontoxic dividual with intact range of motion with suprapatellar swelling. Will obtain radiograph of the left knee. . 06:36 ED course: Knee x-ray independently reviewed and interpreted by me, shows no traumatic ec2 pathology. Discussed case with Dr. Pope, orthopedic surgery, recommends outpatient follow-up and continue weightbearing as tolerated. Patient updated on the plan of care and is agreeable. Return precautions given.. 06/03 04:42 Order name: Knee Left 3 View XRAY ec2 06/03 06:40 Order name: Phil Wrap; Complete Time: 07:06 ec2 Administered Medications: 06:50 Drug: morphine IM 4 mg IM once Route: IM; Site: left deltoid; ha1 07:06 Follow up: Response: No adverse reaction; Marked relief of symptoms; Pain is decreased; ha1 RASS: Alert and Calm (0) Disposition Summary: 06/04/23 06:40 Discharge Ordered Notes: Location: Home ec2 Condition: Stable ec2 Diagnosis - Knee Pain ec2 Followup: ec2 - With: Private Physician - When: - Reason: Re-evaluation by your physician Discharge Instructions: - Discharge Summary Sheet ec2 - Knee Sprain, Adult, [id number] ec2 Forms: - Medication Reconciliation Form ec2 - Thank You Letter ec2 - Antibiotic Education ec2 - Prescription Opioid Use ec2 - Patient Portal Instructions ec2 - Leadership Thank You Letter ec2 Signatures: Dispatcher [employer] Omaira Persaud RN RN ha1 Siomara Edwards RN RN cm10 Juanito Rea MD MD ec2
[2023-06-04] MEDS ORDERED: MORPHINE 4 MG/ML SYR ONE (06:57)
--- NOTE | 2023-06-04 08:55 | RAD REPORT ---
EXAM DESCRIPTION: RAD - Knee Left 3 View - 06/04/2023 6:47 am CLINICAL HISTORY: injury COMPARISON: No comparisons TECHNIQUE: Left knee, 3 views. FINDINGS: No fracture, dislocation or periosteal reaction.Moderate to large joint effusion seen. No joint space narrowing. No soft tissue abnormality. Clinical concerns for internal derangement or occult bony injury could be further assessed with MR im aging. IMPRESSION: Moderate to large suprapatellar joint effusion.
[2023-06-04 12:46] VITALS: BP 158/89; TEMP 98; O2SAT 97
== END 2023-06-04 07:12 | disposition home or self-care (01) ==
LOC: ER 04:15
DX: M25.562 Pain in left knee (principal); Z98.890 Other specified postprocedural states
CPT/HCPCS: 96372; 99284